=== PATIENT | male | born 1990 | race Caucasian/White ===

== ENCOUNTER 2019-11-24 07:46 | Emergency (ER) | payer MEDICAID, SELFPAY ==
[2019-11-24 07:58] VITALS: BP 130/63; PULSE 61; RESP 16; TEMP 37.1; O2SAT 98
--- NOTE | 2019-11-24 09:21 | W.ED.GENAD ---
Discharge Plan Disposition Patient Disposition: HOME Condition: Stable Discharge Details Chief Complaint: Cellulitis Clinical Impression: Foreign body in left upper extremity Primary Care Provider: None,None ED Provider: Chance Dao Home Meds and New Rx's Prescriptions: New cephalexin [Keflex] 500 mg capsule 500 mg PO QID 10 Days Qty: 40 RF: 0 hydrocodone-acetaminophen [[place]] 7.5-325 mg tablet 1 tab PO Q6H PRNQty: 10 RF: 0 Continued buprenorphine-naloxone [Suboxone] 1 EACH film 2 strip Sublingual DAILY RF: 0 dextroamphetamine-amphetamine [Adderall] 30 MG tablet 30 mg PO BID RF: 0 dexmethylphenidate [Focalin] 10 MG tablet 20 mg PO BID RF: 0 ondansetron 4 MG tablet,disintegrating 4 mg PO Q4H PRN PRN (Reason: Nausea / Vomiting) Qty: 10 RF: 1 dicyclomine 20 MG tablet 20 mg PO Q6H PRN PRN (Reason: Abdominal Pain) Qty: 14 RF: 0 pantoprazole 40 MG tablet,delayed release (DR/EC) 40 mg PO DAILY Qty: 30 RF: 0 methadone [Dolophine] 5 MG tablet 65 mg PO DAILY RF: 0 Discontinued cephalexin [Keflex] 500 MG capsule 500 mg PO QID Qty: 28 RF: 0 Discharge Instructions Additional Instructions: As you know you have a small needle in your left arm. I hope this area will come out on its own. You can take 800 mg of Motrin every 6 hours to help with the pain, take the [place]'s as needed to help with breakthrough pain. Do not forget or miss any of your Keflex doses. Do not miss your appointment at 1:30pm on Wednesday, November 28 with the surgeon. Keep the area clean and dry. The needle hopefully come out on its own. Do not soak it in water at all until you are reassessed. If you notice any worsening of your symptoms, or any new symptoms such as vomiting, diarrhea, fever, chills, shortness of breath, chest pain, numbness, weakness, or fainting , please return immediately to the emergency department for reevaluation. Please follow up with your primary care provider as soon as possible for reassessment and reevaluation. As always, it was a pleasure participating in your medical care today. Referrals: Lisseth Martin DO [OSTEOPATHIC DOCTOR] - Medical Decision Making 29-year-old male with past medical history of IV drug abuse presents today for evaluation of foreign body in his left upper arm. Patient was using a needle broke off last night. He tried to did get it with a razor blade but was unsuccessful. He is come to the ER for further assessment. Aside for pain at the site he has no other complaints. He denies any numbness tingling or weakness. No other modifying factors. Physical exam demonstrates a slightly palpable foreign body about half a centimeter below the skin. Ultrasound confirms placement. Very small incision was performed with an 11 blade scalpel, utilizing ultrasonography I was able to visualize the needle and forceps and hemostats coming to the tip of the needle, however unfortunately the needle edge was just below a fascial barrier, which notably obfuscated my ability to grasp the needle tip itself. The entire procedure was performed under ultrasound guidance. After about 15 minutes of attempts I did contact surgery Dr. Best, and assessed the patient. She also came and assessed and attempted, the initial insertion site was elongated, but unfortunately after multiple additional attempts she too was unable to extract the needle. Repeat ultrasonography demonstrates visualization of single needle but does appear slightly deeper. At this time is felt best that we avoid any additional attempts, and follow-up outpatient for potential scheduling of open surgery, however there is also the hope that the needle will remove itself on its own. Exparel was injected by myself at the end around the initial site to help get some pain relief, I do feel that the patient would benefit from additional pain medications at this time secondary to notable pain of the current needle placement. Repeat neurovascular exam continues to show no numbness tingling or vascular compromise. Patient will be discharged home on Keflex 500 x4 times daily, he will be given a sling for comfort. We have outpatient surgery follow-up scheduled with him with Dr. Best. I have extensively reviewed the treatment plan and discharge instructions with the patient. I have addressed all patient concerns at this time. The patient was made aware of what symptoms to monitor for that would warrant a return to the emergency department. Discussed the plan with the patient, they demonstrate verbal understanding and agreement with our assessment and plan at this time. HPI General Date/Time Provider Initiated Documentation: 11/24/19 08:05. HPI Narrative: 29-year-old male with past medical history of IV drug abuse presents today for evaluation of foreign body in his left upper arm. Patient was using a needle broke off last night. He tried to did get it with a razor blade but was unsuccessful. He is come to the ER for further assessment. Aside for pain at the site he has no other complaints. He denies any numbness tingling or weakness. No other modifying factors. Related Data Home Medications Medication Instructions Recorded Confirmed buprenorphine-naloxone [Suboxone] 2 strip SUBLINGUAL DAILY 11/22/12 05/09/16 dextroamphetamine-amphetamine 30 mg PO BID 07/21/14 05/09/16 [Adderall] dexmethylphenidate [Focalin] 20 mg PO BID 12/28/14 05/09/16 dicyclomine 20 mg PO Q6H PRN PRN #14 tab 12/28/14 05/09/16 ondansetron 4 mg PO Q4H PRN PRN #10 tabef 12/28/14 11/11/15 pantoprazole 40 mg PO DAILY #30 tabcr 12/28/14 05/09/16 methadone [Dolophine] 65 mg PO DAILY 05/09/16 05/09/16 cephalexin [Keflex] 500 mg PO QID 10 Days #40 cap 11/24/19 hydrocodone-acetaminophen [[place]] 1 tab PO Q6H PRN #10 tab 11/24/19 Previous Rx's Medication Instructions Recorded dicyclomine 20 mg PO Q6H PRN PRN #14 tab 12/28/14 ondansetron 4 mg PO Q4H PRN PRN #10 tabef 12/28/14 pantoprazole 40 mg PO DAILY #30 tabcr 12/28/14 cephalexin [Keflex] 500 mg PO QID 10 Days #40 cap 11/24/19 hydrocodone-acetaminophen [[place]] 1 tab PO Q6H PRN #10 tab 11/24/19 Allergies Allergy/AdvReac Type Severity Reaction Status Date / Time No Known Allergies Allergy Unverified 05/09/16 08:24 General Stated Complaint: Cellulitis NANCY: 4 Review of Systems All systems reviewed & are unremarkable except as noted in HPI and below PFSH Social History Smoking/Tobacco Use Status: Current every day Tobacco Type: cigarettes Alcohol Intake: never Drug use: Daily Substance use type: marijuana, heroin and IV drugs Do you feel safe at home: Yes Do you feel safe in your relationship?: Yes Exam Narrative Exam Narrative: 1.Const: Well-nourished, Well-developed, appearing stated age 2.Eyes: PERRL, no conjunctival injection, and symmetrical lids. 3.ENT: Atraumatic external nose and ears. Moist MM. Neck: Symmetric, trachea midline, No thyromegaly. 4.CVS: +S1/S2, No murmurs or gallops. Peripheral pulses 2+ and equal in all extremities. Brisk capillary refill in all extremities. 5.RESP: Unlabored respiratory effort. Clear to auscultation bilaterally. No wheezes rales or rhonchi 6.GI: Soft, Nontender/Nondistended, No hepatosplenomegaly. No guarding or rebound. 7.MSK: Normocephalic/Atraumatic, Extremities w/o deformity or ttp No cyanosis or clubbing, Normal movement of all extremities 8.Skin: Warm, Dry. Patient's left upper extremity at the midshaft humerus anterior component demonstrates small excoriation rose which were iatrogenic/self-inflicted in an attempt to get the needle out. If deep pressure is applied you can gently feel the needle the anterior plane midshaft anterior to the biceps muscle. No bleeding. Distal exam demonstrates no numbness tingling weakness. Capillary refill is brisk. Radial pulses +2 bilaterally. Bedside limited ultrasound does demonstrate a needle roughly a centimeter long, notably thin, no local surrounding veins or arteries that can be appreciated on ultrasound. 9.Neuro: mental health therapist II-XII grossly intact. Sensation grossly intact, no focal neurologic deficits. 10.Psych: (AAO) x3. Appropriate mood and affect Course Vital Signs Vital signs: Vital Signs Temperature 37.1 C 11/24/19 07:58 Pulse 61 11/24/19 07:58 Respiratory Rate 16 11/24/19 07:58 Blood Pressure 130/63 11/24/19 07:58 Pulse Oximetry 98 11/24/19 07:58 Temperature 37.1 C 11/24/19 07:58 Temperature Source Tympanic 11/24/19 07:58 Pulse 61 11/24/19 07:58 Respiratory Rate 16 11/24/19 07:58 Respiratory Effort 11/24/19 08:03 Blood Pressure 130/63 11/24/19 07:58 Blood Pressure Position Sitting 11/24/19 07:58 Pulse Oximetry 98 11/24/19 07:58 Oxygen Delivery Method Room Air 11/24/19 07:58 Oxygen Flow Rate 0 11/24/19 07:58 Pain Level 3 11/24/19 07:58 Procedures Foreign Body Removal Time Out Performed: yes Site: left and other (Upper extremity over the midshaft humerus) Description of foreign body: needle Sedation/Analgesia: none Technique: removal with forceps, incision made to facilitate removal and bedside ultrasound guidance Confirmed by:: ultrasound and palpation Complications: none (However we were unable to remove the foreign body) Neurovascular: normal distal pulse, normal capillary fill, distal light touch sensation intact, distal motor function normal, no signs of compartment syndrome, no change from pre-procedure and other (5 cc of lidocaine with epinephrine were initially injected into the wound site, and after repeat procedures an additional 5 cc of Exparel were injected into the wound area)
--- NOTE | 2019-11-24 09:50 | W.SURGCON ---
Date of service: 11/24/19 Time of Service: 10:16 Assessment and Plan Assessment and plan (1) Foreign body in left upper extremity: Status: Acute Assessment and plan: A\\ Will place patient on Antibiotics and see in the office next week At that time will review options of leaving the needle in place and allowing it to come out on its own or it may end up getting scarred into place vs surgical exploration in the OR. P\\ Follow up next week Keflex Qualifiers: Encounter type: initial encounter Qualified Code(s): S40.852A - Superficial foreign body of left upper arm, initial encounter History of Present Illness History of Present Illness Chief Complaint: foreign body Narrative: Mr. Orellana is a 29 year old male that came to the ER after braking off a piece of a hypodermic needle in his left biceps while injecting IV drugs. Dr. Dao attempted to remove the needle under US but wasn't able to so asked if I would give it a try. Consults Consult date: 11/24/19 Requesting physician: Chance Dao Review of Systems Constitutional Constitutional: Denies fever(s) PFSH Medical History ADHD (attention deficit hyperactivity disorder) (Acute) GERD (gastroesophageal reflux disease) (Chronic) IV drug abuse (Acute) Social History Smoking/Tobacco Use Status: Current every day Tobacco Type: cigarettes Alcohol Intake: never Drug use: Daily Substance use type: marijuana, heroin and IV drugs Do you feel safe at home: Yes Do you feel safe in your relationship?: Yes Exam Const General: cooperative and no acute distress Orientation: alert and oriented x3 Extrem Other: Left Upper extremity- There is a small incision. The skin is still numb from the local anesthetic. The incision was increased superiorly with an 11 blade after cleaning the skin with chlorhexidine. I attempted to locate the needle without success. Dr. Dao then came in with the US and again tried to locate the needle. It looks like the needle has travelled deeper. Again an attempt was made to find the needle and remove it under US guidence but I was unable to find it. Results Last Vital Signs Temp 98.8 F 11/24/19 07:58 Pulse 61 11/24/19 07:58 Resp 16 11/24/19 07:58 BP 130/63 06/26/20 07:58 Pulse Ox 98 11/24/19 07:58
[2019-11-24] MEDS: Bupivacaine LIPOSOME/PF 133 MG/10 ML VIAL IJ (10:05)
[2019-11-24 10:29] VITALS: BP 130/63; PULSE 61; RESP 16; TEMP 37.1; O2SAT 98
== END 2019-11-24 10:29 | disposition home or self-care (01) ==
PROVIDERS: Emergency Provider Student in an Organized Health Care Education/Training Program
DX: S41.142A Puncture wound with foreign body of left upper arm, initial encounter (principal); W46.1XXA Contact with contaminated hypodermic needle, initial encounter; L03.115 Cellulitis of right lower limb; F11.10 Opioid abuse, uncomplicated
CPT/HCPCS: 10120; 99252; 99283; L3650

== ENCOUNTER 2024-02-29 08:16 | Emergency (ER) | payer MEDICAID, SELFPAY ==
[2024-02-29 08:41] VITALS: BP 133/115; PULSE 61; RESP 14; TEMP 36.4; O2SAT 99
[2024-02-29 08:44] VITALS: BP 133/115; PULSE 61; RESP 14; TEMP 36.4; O2SAT 99
--- NOTE | 2024-02-29 08:50 | ED.GENADUL_ITS ---
Discharge Plan Disposition Patient Disposition: Eloped Condition: Stable Discharge Details Clinical Impression: Tongue abnormality Primary Care Provider: Veronica Agrawal ED Provider: Chance Dean Home Meds and New Rx's Prescriptions: No Action buprenorphine-naloxone [Suboxone] 1 EACH film 2 strip Sublingual DAILY Patient Comments: pt states he does not take 05/09/16 Discharge Instructions Additional Instructions: Patient eloped prior to CT scan, stated he did not want this study and walked out. HPI General Date/Time Provider Initiated Documentation: 02/29/24 08:45 . HPI Narrative: 33 year-old male presents to ED today by POV/ambulating with a chief complaint of tongue lesion, states the R side of his tongue has been hurting for a day or two, patient is nodding off mid-conversation, appears inebriated on some substa nce, not alcohol. Quality described as concerned for tongue abscess, no radiation to fever, dysphagia, drooling, neck or facial swelling/redness, purulent drainage into mouth. Severity is described as mild to moderate. Palliating factors include nothing specific attempted. Provoking factors include nothing specific. Events leading up to the incident/Associated Symptoms: Patient has history of biting off part of his tongue during a seizure. Patient not anticoagulated. Related Data Home Medications ?Medication ?Instructions ?Recorded ?Confirmed buprenorphine 8 mg-naloxone 2 mg 2 strip sublingual DAILY 11/22/12 02/29/24 sublingual film (Suboxone) Allergies Allergy/AdvReac Type Severity Reaction Status Date / Time No Known Allergies Allergy Unverified 02/29/24 08:45 General Stated Complaint: DentalOral NANCY: 3 Review of Systems All systems reviewed & are unremarkable except as noted in HPI and below Exam Narrative Exam Narrative: GENERAL APPEARANCE: Well-nourished, non-toxic, atraumatic, no acute distress. SKIN: Warm, pink, dry, intact, without rashes/lesions/ulcerations. HEAD: Normocephalic, atraumatic, normal hair distribution for gender/age. EYES: Normal conjunctiva, no exudates on lids/lashes. ENT: Nares patent, no circumoral cyanosis, no facial swelling, shortened tongue from prior injury, hard nodule on R side of tongue about 0.25cm, no fluctuance or redness, no purulent drainage, uvula midline, no submandibular swelling, managing secretions well, no vocal changes NECK: Supple, trachea midline, painless cervical ROM. LUNGS/CHEST: Non-labored respirations, normal A/P diameter, symmetrical expansion, no chest wall deformity HEART (CV/PV): No peripheral edema, no JVD. ABDOMEN: Soft, non-distended, no guarding. MSK: Normal ROM, no swelling/deformity to bilateral UEs or LEs, moving all extremities without weakness, no cyanosis, spine midline without tenderness, normal curvature. NEURO: Mental Status AAOx4 - alert to person, place, time, events, appears intoxicated on substance No facial droop, no forehead involvement. Motor: No focal weakness - strength 5/5 in bilateral UEs and LEs, proximal and distal, symmetric. Sensory: sensation intact to light touch globally. Gait normal: patient ambulated without ataxia into ED room. PSYCH: dysthymic, cooperative, pleasant, appropriate speech Course Vital Signs Vital signs: Vital Signs Temperature 36.4 C L 02/29/24 08:41 Pulse 61 02/29/24 08:41 Respiratory Rate 14 02/29/24 08:41 Blood Pressure 133/115 H 02/29/24 08:41 Pulse Oximetry 99 02/29/24 08:41 Temperature 36.4 C L 02/29/24 08:44 Temperature Source Temporal Artery Scan 02/29/24 08:44 Pulse 61 02/29/24 08:44 Respiratory Rate 14 02/29/24 08:44 Respiratory Effort Normal 02/29/24 08:44 Blood Pressure 133/115 H 02/29/24 08:44 Pulse Oximetry 99 02/29/24 08:44 Oxygen Delivery Method Room Air 02/29/24 08:44 Oxygen Flow Rate 0 02/29/24 08:44 Pain Level 8 02/29/24 08:44 Medical Decision Making This dictation utilizes hikac-py-[id number] dictation software and may contain unedited grammatical errors. 33 year-old male presents to ED today by POV/ambulating with a chief complaint of tongue lesion, states the R side of his tongue has been hurting for a day or two, patient is nodding off mid-conversation, appears inebriated on some substance, not alcohol. Quality described as concerned for tongue abscess, no radiation to fever, dysphagia, drooling, neck or facial swelling/redness, purulent drainage into mouth. Severity is described as mild to moderate. Palliating factors include nothing specific attempted. Provoking factors include nothing specific. Events leading up to the incident/Associated Symptoms: Patient has history of biting off part of his tongue during a seizure. Patients' medical history: IV drug abuse, GERD. Family and social history: patient doesn't answer these questions. Pertinent exam findings / vital signs include shortened tongue from prior injury, hard nodule on R side of tongue about 0.25cm, no fluctuance or redness, no purulent drainage, uvula midline, no submandibular swelling, managing secretions well, no vocal changes, appears intoxicated. Differential / pathologies of concern include oral cancer, scar tissue, canker sore. Diagnostic studies of: -discussed CT neck w/ contrast, patient refused study and walked out. Interventions of: -none. ED Course/Assessment/Plan: 33-year-old male has a right-sided tongue abnormality, appears to be a hard 0.25 cm nodule, I discussed the need for CT but that we would likely need to refer to dentist or oral surgeon or ENT for definitive diagnosis, patient then refused CT scan and walked out of department. Findings not consistent with oral abscess, airway compromise, deep space infection. Disposition of tongue abnormality. Patient verbalized understanding of the plan and return to ED criteria and engaged in shared decision making. Medical Records Medical records reviewed: Yes I reviewed the patient's medical records. Quality:[facility] Health Related Social Needs: No Data to Display [facility] All Active Problems (Updated 02/29/24 @ 08:56 by VINITA Vasquez) Tongue abnormality (Acute) Medical History GERD (gastroesophageal reflux disease) ADHD (attention deficit hyperactivity disorder) IV drug abuse Social History Smoking/Tobacco Use Status: Current every day Tobacco Type: cigarettes Smoking risk assessment performed?: Yes Alcohol Intake: never Drug use: Daily Substance use type: marijuana, heroin and IV drugs Do you feel safe at home: Yes Do you feel safe in your relationship?: Yes
== END 2024-02-29 09:07 | disposition left against medical advice (07) ==
PROVIDERS: Emergency Provider Physician Assistant; PCP Family Medicine
DX: Q38.3 Other congenital malformations of tongue (principal); Z53.29 Procedure and treatment not carried out because of patient's decision for other reasons
CPT/HCPCS: 99281; 99283

== ENCOUNTER 2024-03-14 18:09 | Inpatient (IN) | payer MEDICAID, SELFPAY ==
[2024-03-14] VITALS (55 sets, daily range): BP systolic 126–264; BP diastolic 85–169; PULSE 52–126; RESP 0–28; TEMP 36.6–37.3; O2SAT 95–100
--- NOTE | 2024-03-14 18:00 | DI.RAD_ITS ---
Exam(s) XR PORTABLE CHEST AP EXAM: XR PORTABLE CHEST AP CLINICAL HISTORY: ams. TECHNIQUE: 2D digital imaging was performed. COMPARISON: No exams were available for comparison FINDINGS: Single AP portable view. Heart size is upper normal. The mediastinum is not widened. Lungs are clear. No infiltrates nor obvious pleural effusions. IMPRESSION: No acute pulmonary findings on this single AP portable view of the chest. DATA REPOSITORY: RADIATION DOSE DELIVERED:
--- NOTE | 2024-03-14 18:00 | RT.EKG_ITS ---
APPROVED REPORT Exam: Resting ECG Reason for Exam: [facility] [place] Patient Location: E HR:100 bpm ECG Measurements Heart Rate 100 AXIS WY 144 P 76 QRSd 97 QRS 44 QT 360 T 39 QTc 463 Conclusion Sinus tachycardia...rate> 99 Probable left atrial enlargement...P >50mS, <-0.10mV V1 Sinus tachycardia normal axis normal intervals no acute ischemic changes
--- NOTE | 2024-03-14 18:00 | DI.CT_ITS ---
Exam(s) CT HEAD WO EXAM: CT HEAD WO CLINICAL HISTORY: ams. TECHNIQUE: Imaging Protocol: Axial computed tomography images with coronal and sagittal reformatted images were created and reviewed COMPARISON: No exams were available for comparison FINDINGS: There are no skull fractures. There is no fluid in the visualized paranasal sinuses. There is no evidence of intracranial hemorrhage, mass effect, or shift of midline structures. There are no extra-axial fluid collections. The ventricles are not enlarged or shifted and there is no blo od within the ventricular system nor within the basal cisterns. IMPRESSION: No acute intracranial findings on this noninfused CT scan of the brain. Report called by myself to ER physician 03/14/2024 7:14 p.m. RADIATION DOSE DELIVERED: 953.06mGy.cm Total DLP DATA REPOSITORY: All CT scans at this facility are submitted to the National Radiology Data Registry (NRDR) Dose Index Registry (DIR) with the [employer] ([employer]). RADIATION OPTIMIZATION: All CT scans at this facility use at least one of these dose optimization te chniques: automated exposure control; mA and/or kV adjustment per patient size (includes targeted exa ms where dose is matched to clinical indication); or iterative reconstruction.
[2024-03-14 18:20] LABS: Abs Immature Grans 0.02 10^3/uL (0.0-0.06); Absolute Basophil Count 0.02 10^3/uL (0.0-0.2); Absolute Eosinophil Count 0.02 10^3/uL (0.0-0.7); Absolute Neutrophil Count 5.43 10^3/uL (1.2-6.7); BE (Venous) 5 mmol/L (-2-3); Basophils % 0.2 %; Eosinophils % 0.2 %; HCO3 (Venous) 29 mmol/L (23-28); HCT 47.4 % (40.0-50.0); HGB 15.4 g/dL (13.5-17.5); Immature Grans % 0.2 %; Lymphocytes % 27.4 %; MCH 28.3 pg (27.0-33.0); MCHC 32.5 % (32.0-36.0); MCV 87 fL (80-95); MPV 10.2 fL (8.0-11.0); Monocytes % 7.2 %; Neutrophils % 64.8 %; O2 Sat (Venous) 52 %; Platelet Count 207 10^3/uL (130-400); RBC 5.45 10^6/uL (4.36-5.78); RDW 12.8 % (11.8-14.1); RDW-SD 39.9 fL; TCO2 (Venous) 25 mmol/L (24-29); WBC 8.39 10^3/uL (4.4-10.8); pCO2 (Venous) 41 mmHg (41-51); pH (Venous) 7.46 (7.31-7.41); pO2 (Venous) 27 mmHg
[2024-03-14 18:34] LABS: Prothrombin Time 10.1 sec (9.1-11.1)
[2024-03-14] MEDS: Atropine 1 MG/10 ML SYRINGE ×2 (18:35→20:46)
--- NOTE | 2024-03-14 18:44 | ED.GENADUL_ITS ---
Discharge Plan Disposition Patient Disposition: Admit to [facility] Condition: Serious Discharge Details Chief Complaint: AMS/LOC Clinical Impression: Altered mental status Primary Care Provider: Veronica Agrawal ED Provider: Obie Go Home Meds and New Rx's Prescriptions: No Action buprenorphine-naloxone [Suboxone] 1 EACH film 2 strip Sublingual DAILY Patient Comments: pt states he does not take 05/09/16 HPI General Date/Time Provider Initiated Documentation: 03/14/24 18:09 . HPI Narrative: 33-year-old male brought in by EMS after mother found him on the couch with decreased responsiveness per mother had been on the couch since midnight. Patient minimally interactive with history and physical. Related Data Home Medications ?Medication ?Instructions ?Recorded ?Confirmed buprenorphine 8 mg-naloxone 2 mg 2 strip sublingual DAILY 11/22/12 02/29/24 sublingual film (Suboxone) Allergies Allergy/AdvReac Type Severity Reaction Status Date / Time No Known Allergies Allergy Unverified 03/14/24 18:16 General Stated Complaint: AMS/LOC NANCY: 2 Exam Narrative Exam Narrative: Decreased responsiveness intermittently responding to verbal stimuli Mydriasis Copious oral secretions Piloerection of extremities Patient noted to be bradycardic to the 40s and 50s Evidence the patient has urinated and defecated on himself Patient keeping eyes closed, intermittently responding to verbal stimuli intermittently squeezing hands to command, inappropriate words with verbal response total GCS approximately 10 on arrival Patient moving all extremities spontaneously No evidence of cranial thoracic or abdominal trauma Course Vital Signs Vital signs: Vital Signs Respiratory Rate 22 03/14/24 18:07 Pulse Oximetry 99 03/14/24 18:07 Temperature 36.6 C 03/14/24 18:17 Temperature Source Rectal 03/14/24 18:17 Pulse 59 L 03/14/24 18:17 Pulse 126 H 03/14/24 18:30 Respiratory Rate 26 H 03/14/24 18:30 Respiratory Effort Drooling 03/14/24 18:21 Respiratory Depth Deep 03/14/24 18:21 Respiratory Pattern Normal 03/14/24 18:21 Blood Pressure 158/85 H 03/14/24 18:17 Blood Pressure Mean 113 03/14/24 18:16 Blood Pressure Position Sitting 03/14/24 18:17 Pulse Oximetry 98 03/14/24 18:20 Respiratory End-tidal CO2 33 03/14/24 18:30 Oxygen Delivery Method Room Air 03/14/24 18:17 Oxygen Flow Rate 0 03/14/24 18:17 Pain Level 0 03/14/24 18:17 Comment post atropine 03/14/24 18:30 Lab/Test Results Lab/Test Results: Laboratory Tests Range/Units 03/14/24 18:11 WBC (4.4-10.8) 10^3/uL 8.39 RBC (4.36-5.78) 10^6/uL 5.45 Hgb (13.5-17.5) g/dL 15.4 Hct (40.0-50.0) % 47.4 MCV (80-95) fL 87 MCH (27.0-33.0) pg 28.3 MCHC (32.0-36.0) % 32.5 RDW (11.8-14.1) % 12.8 Plt Count (130-400) 10^3/uL 207 MPV (8.0-11.0) fL 10.2 Immature Gran % % 0.2 Neutrophils % % 64.8 Lymphocytes % % 27.4 Monocytes % % 7.2 Eosinophils % % 0.2 Basophils % % 0.2 Nucleated RBC % (0.0-0.3) % 0.0 Absolute Neutrophils (1.2-6.7) 10^3/uL 5.43 Absolute Lymphocytes (1.2-3.4) 10^3/uL 2.30 Absolute Monocytes (0.1-0.8) 10^3/uL 0.60 Absolute Eosinophils (0.0-0.7) 10^3/uL 0.02 Absolute Basophils (0.0-0.2) 10^3/uL 0.02 PT (9.1-11.1) sec 10.1 INR (0.9-1.1) 1.0 APTT (23.6-32.8) sec 24.0 VBG pH (7.31-7.41) 7.46 H VBG pCO2 (41-51) mmHg 41 VBG pO2 mmHg 27 VBG HCO3 (23-28) mmol/L 29 H VBG Total CO2 (24-29) mmol/L 25 VBG O2 Saturation % 52 VBG Base Excess (-2-3) mmol/L 5 H Procedures Intubation Time out performed: Yes sedative: Etomidate Mg Given: 20 paralytic: Rocuronium Mg Given: 100 Laryngoscope: Ankur ET Tube Size: 7.5 ET Tube Uncuffed: No Tube Secured Depth (cm): 25 Tube Secured Location: teeth Tube Placement Confirmation: visualized tube passing through cords, equal breath sounds bilaterally, no breath sounds over epigastrum and confirmation by capnometry Patient Tolerated Procedure: well Intubation Complications: none Medical Decision Making 33-year-old male presents with altered mental status and somnolence drooling yawning piloerection urinary and stool incontinence, mydriasis, as well as bradycardia to the 40s and 50s; fingerstick 111, no external signs of trauma. Initial GCS approximately 10. Concern for organophosphate toxicity. Patient was given empiric 1 mg IV atropine with marked improvement of mental status and heart rate. Pupils of return to a normal size. 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 Please control was contacted and agrees with intervention recommended continued observation. Secondary in the differential would be opio id withdrawal in the setting of Suboxone use consider the potential the patient used an opiate with a sedative hypnotic such as xylazine triggering the constellation of symptomatology however I would not expect patient's mental status to improve with atropine administration. Given his occupation and presentation high clinical suspicion for organophosphate toxicity. Obtaining labs toxicologic labs VBG chest x-ray CT head, continued supportive care airway equipment is at bedside. Patient will need close observation in the ICU 20: 01 patient currently resting comfortably telling secretions which have dried up considerably since atropine administration. Hemodynamically stable. No respiratory distress. Labs imaging largely unremarkable. Discussed case further with Dr. Nielsen of poison control who thinks that organophosphate toxicity is less likely given timeframe/history as well as initial examination. Holding 2?JEREMIAH at this time. Consider opioid withdrawal with concomitant sedative use lower suspicion for seizure traumatic process or stroke. Will admit to ICU for close observation of mental status and hemodynamics. 21: 14 patient showing worsening of altered mental status with gagging coughing and likely aspirating intermittent choking and sonorous breathing return of dilated pupils and salivation. Another 1 mg dose of atropine was administered with minimal effect. Patient was intubated for airway protection given altered mental status gagging choking not tolerating secretions and aspirating. Patient will be admitted to the ICU Quality:SDOH Health Related Social Needs: No Data to Display Critical Care Time Critical Care Time Attestation: Critical care time spent the bedside assessing patient interpreting labs opening imaging administering medication, intubating patient for airway protection, and acute altered mental status with signs of aspiration requiring ICU level care [facility] All Active Problems (Updated 03/14/24 @ 21:16 by Obie Go MD) Altered mental status (Acute) Overdose (Acute) Opioid use disorder, severe, on maintenance therapy, dependence (Chronic) Tongue abnormality (Acute) Medical History GERD (gastroesophageal reflux disease) ADHD (attention deficit hyperactivity disorder) IV drug abuse Social History Smoking/Tobacco Use Status: Current every day Tobacco Type: cigarettes Smoking risk assessment performed?: Yes Alcohol Intake: never Drug use: Daily Substance use type: marijuana, heroin and IV drugs Details: on suboxone Housing: house Do you feel safe at home: Yes Do you feel safe in your relationship?: Yes Additional Social history: mother called EMS
[2024-03-14 18:48] LABS: Salicylate 2.9 mg/dL (<2.8)
[2024-03-14 18:49] LABS: Acetaminophen < 2 ug/mL (10-30)
[2024-03-14 18:52] LABS: ALT 52 U/L (16-63); AST 37 U/L (15-37); Albumin 3.8 g/dL (3.4-5.0); Alkaline Phosphatase 120 U/L (46-116); BUN 6 mg/dL (7-18); Bilirubin, Total 0.62 mg/dL (0.2-1.0); CREATININE 1.1 mg/dL (0.70-1.30); Calcium 9.4 mg/dL (8.5-10.1); Chloride 105 mmol/L (98-107); Creatine Kinase 364 U/L (39-308); Estimated GFR 89.78 (mL/min/1.73m2); Glucose 129 mg/dL (74-106); Lipase 23 U/L (16-77); Magnesium 2.2 mg/dL (1.8-2.4); NT-proBNP 906 pg/mL (<300); Potassium 4.2 mmol/L (3.5-5.1); Sodium 145 mmol/L (136-145); TSH (W/Ref FT4) 0.36 uIU/mL (0.36-3.74); Total Protein 8.1 g/dL (6.4-8.2); Troponin I 24 ng/L (<or=76)
[2024-03-14 19:00] LABS: ETHANOL BLOOD < 3.0 mg/dL (<10)
--- NOTE | 2024-03-14 19:24 | NUR.NOTE ---
There was a delay in obtaining EKG due to patient having at CT Scan done prior to EKG being done.
[2024-03-14 19:38] LABS: Ammonia 15 umol/L (11-32)
[2024-03-14 19:46] LABS: Troponin I 38 ng/L (<or=76)
--- NOTE | 2024-03-14 20:29 | HPE_ITS ---
Date of service: 03/14/24 Time of Service: 20:30 Assessment and Plan Assessment and plan (1) Overdose: Start date: 03/14/24 Status: Acute Assessment and plan: This is a 33-year-old gentleman with a history of opioid use disorder but also appears to have polysubstance abuse for self treatment having chronic ADHD. 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 He did have acute change in mental status I was not guarding his airway requiring intubation and will remain intubated with ventilation overnight. He is responding to propofol and does have variable blood pressures and is not bradycardic as with initial presentation requiring atropine. It is most likely patient has polysubstance overdose but lab and imaging are reassuring with no major sequela other than respiratory suppression and sedation. It is likely he has a combination of fentanyl and xylazine. Urine drug screen will be expanded but these are all send outs and will not be available immediately. Patient is a full code and will continue supportive care. Once he is awake and then medically cleared, the patient should return to drug counseling. Qualifiers: Encounter type: initial encounter Injury intent: undetermined intent Q ualified Code(s): T50.904A - Poisoning by unspecified drugs, medicaments and biological substances, undetermined, initial encounter (2) Opioid use disorder, severe, on maintenance therapy, dependence: Status: Chronic Assessment and plan: Patient is prescribed Suboxone chronically but did have cocaine in his urine indicating some drug use. He does have a previous history of drug use. Continue monitoring while sedated and supportive care for his overdose. (3) ADHD (attention deficit hyperactivity disorder): Assessment and plan: Medical therapy but is may need to be reevaluated patient is not coping well with social situation. He appears to be working but he is living at home with his mother. At least he appears to have some support systems. 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 He is on Suboxone and does have a history of IV drug abuse. He was found asleep on the couch with increased somnolence and drooling while yawning with piloerection and some urinary and stool incontinence as well as mydriasis with some concerns of organophosphate toxicity with his exposure. In the ED he did have Allergy consultation and it was thought to be less of a chronic phosphate toxicity and more likely a mixture is polysubstance drug abuse. His urine drug screen was positive for cocaine and THC but negative for opiates screen for methadone, fentanyl, Suboxone or xylazine which was sent out as a special urine drug screens. He did have bradycardia with overproduction of secretions which both responded to atropine one-time dose in the ED. He was doing well in the ED with being more awake and interacting awaiting imaging but then became more somnolent once again and required endotracheal intubation with patient not guarding his airway adequately. The only known prescribed medication for patient on record is Suboxone though he does have ADHD and may have some risk of self treatment. As that he did use IV drugs in the past. The ED physician did have a long discussion with Dr. Nielsen and poison control who was leaning less toward the differential diagnosis of organophosphate toxicity because of the timing and presentation the patient did have considerable response to atropine. Patient will have supportive care while mechanically ventilated and intubated with sedation using propofol mostly. He is intermittently hypertensive and not bradycardic. At the time I saw the patient he was sedated and intubated. No further history was available. Lab and imaging was otherwise reassuring for any other metabolic issues and the patient is comfortable lying bed with his head at a 45 degree angle and an OG tube with his endotracheal intubation. He is a full code. Review of Systems Narrative: Review of systems unobtainable with patient sedated and intubated. [facility] All Active Problems Altered mental status (Acute) Overdose (Acute) Opioid use disorder, severe, on maintenance therapy, dependence (Chronic) Tongue abnormality (Acute) Medical History GERD (gastroesophageal reflux disease) ADHD (attention deficit hyperactivity disorder) IV drug abuse Social History Smoking/Tobacco Use Status: Current every day Tobacco Type: cigarettes Smoking risk assessment performed?: Yes Alcohol Intake: never Drug use: Daily Substance use type: marijuana, heroin and IV drugs Details: on suboxone Housing: house Do you feel safe at home: Yes Do you feel safe in your relationship?: Yes Additional Social history: mother called EMS Meds Allergies and Home Medications Allergies Allergy/AdvReac Type Severity Reaction Status Date / Time No Known Allergies Allergy Unverified 03/14/24 18:16 Home Medications ?Medication ?Instructions ?Recorded ?Confirmed ?Type buprenorphine 8 mg-naloxone 2 mg 2 strip sublingual DAILY 11/22/12 02/29/24 History sublingual film (Suboxone) Exam Narrative Exam Narrative: General: Patient is mesomorphic, tall and thin but in bed sedated with propofol with endotracheal intubation and mechanically ventilated. He does have restraints over his arms and is not typing. He is adequately sedated after being transferred to the ICU with some transient hyperactivity. HEENT: Normocephalic, eyes now with pupils equal and reactive to light symmetrically, extraocular movement intact and sclera anicteric. Oropharynx with moist mucosa. Endotracheal tube and OG tube in place. Fair dentition. Neck: Supple without JVD. Back: Not examined. Lungs: Clear to auscultation WITH no focalizing rales or rhonchi. Patient is being mechanically ventilated without struggling. Heart: Regular rate and rhythm with no murmurs gallops appreciated. Abdomen: Scaphoid contour, soft nontender to palpation no palpable hepatosplenomegaly. Genitalia/rectal: Exam deferred. Patient has a Mejia catheter in place. Skin: Normal color, warm and dry. Multiple tattoos. Neuro: Cranial nerves II through XII appear to be grossly intact as testing is possible with patient intubated and sedated. No focal motor deficits moving all extremities well. No tremor. Psych: Patient is sedated and intubated. Exam limited. Results Imaging Imaging Studies: EXAM: CT HEAD WO CLINICAL HISTORY: ams. TECHNIQUE: Imaging Protocol: Axial computed tomography images with coronal and sagittal reformatted images were created and reviewed COMPARISON: No exams were available for comparison FINDINGS: There are no skull fractures. There is no fluid in the visualized paranasal sinuses. There is no evidence of intracranial hemorrhage, mass effect, or shift of midline structures. There are no extra-axial fluid collections. The ventricles are not enlarged or shifted and there is no blood within the ventricular system nor within the basal cisterns. IMPRESSION: No acute intracranial findings on this noninfused CT scan of the brain. EXAM: XR PORTABLE CHEST AP CLINICAL HISTORY: ams. TECHNIQUE: 2D digital imaging was performed. COMPARISON: No exams were available for comparison FINDINGS: Single AP portable view. Heart size is upper normal. The mediastinum is not widened. Lungs are clear. No infiltrates nor obvious pleural effusions. IMPRESSION: No acute pulmonary findings on this single AP portable view of the chest. Labs 03/14/24 18:11 03/14/24 18:11 Labs: Laboratory Results - last 24 hr 03/14/24 03/14/24 18:11 19:10 WBC 8.39 RBC 5.45 Hgb 15.4 Hct 47.4 MCV 87 MCH 28.3 MCHC 32.5 RDW 12.8 Plt Count 207 MPV 10.2 Immature Gran % 0.2 Neutrophils % 64.8 Lymphocytes % 27.4 Monocytes % 7.2 Eosinophils % 0.2 Basophils % 0.2 Nucleated RBC % 0.0 Absolute Neutrophils 5.43 Absolute Lymphocytes 2.30 Absolute Monocytes 0.60 Absolute Eosinophils 0.02 Absolute Basophils 0.02 PT 10.1 INR 1.0 APTT 24.0 VBG pH 7.46 H VBG pCO2 41 VBG pO2 27 VBG HCO3 29 H VBG Total CO2 25 VBG O2 Saturation 52 VBG Base Excess 5 H Sodium 145 Potassium 4.2 Chloride 105 Carbon Dioxide 28.0 Anion Gap 12.0 H BUN 6 L Creatinine 1.1 Est GFR (CKD-EPI 2020) 89.78 Glucose 129 H Calcium 9.4 Magnesium 2.2 Total Bilirubin 0.62 AST 37 ALT 52 Alkaline Phosphatase 120 H Ammonia 15 Creatine Kinase 364 H Troponin I 24 38 NT-Pro-B Natriuret Pep 906 H Total Protein 8.1 Albumin 3.8 Lipase 23 TSH 0.36 Salicylates 2.9 Acetaminophen < 2 Ethyl Alcohol < 3.0 ABO/Rh A Positive Antibody Screen NEGATIVE Last Vital Signs Temp 36.6 C 03/14/24 18:17 Pulse 59 L 03/14/24 18:17 Resp 26 H 03/14/24 18:30 BP 158/85 H 03/14/24 18:17 Pulse Ox 98 03/14/24 18:20 Time Spent Time spent with Patient: >75 minutes Time was spent: preparing to see the patient(eg.review tests), obtaining and/or reviewing separately otained hiistory, ordering medications,tests, procedures, referring, communicating with other health home day care provider, indepentently interpreting results and care coordination
[2024-03-14 20:58] LABS: Bilirubin Negative (Negative); Blood Negative (Negative); Clarity Clear (Clear); Glucose Negative (Negative); Ketones 15 mg/dL (Negative); Leukocyte Esterase Negative (Negative); Nitrite Negative (Negative); Urobilinogen >=8.0 mg/dL (Up to 0.2); pH 8.5 (5-8)
--- NOTE | 2024-03-14 21:00 | DI.RAD_ITS ---
Exam(s) XR PORTABLE CHEST AP EXAM: XR PORTABLE CHEST AP CLINICAL HISTORY: intubation tube placement TECHNIQUE: 2D digital imaging was performed of the chest. One image was obtained. An AP view was ob tained. COMPARISON: CR XR PORTABLE CHEST AP from 03/14/2024 FINDINGS: MEDIASTINUM: Normal. HEART: Normal. PULMONARY VASCULATURE: Normal. LUNGS: Clear. PLEURAL SPACE: No pleural effusion or pneumothorax. BONE:Within normal limits for the patient's age. OTHER FINDINGS:There has been interval placement of an endotracheal tube. The tip of the tube is 4 c m above the hope. IMPRESSION: 1. No acute pulmonary findings. 2. Interval placement of an endotracheal tube. The tip of the ET tube is 4 cm above the hope. DATA REPOSITORY: RADIATION DOSE DELIVERED:
[2024-03-14 21:04] LABS: Bacteria Negative HPF (Negative); C & S Indicated? No; Crystals Negative HPF (Negative); Epithelial Cells Negative HPF (Negative); Mucus Negative (Negative); RBC 0-2 HPF (0-2); WBC 0-2 HPF (0-5)
[2024-03-14] MEDS: Etomidate 20 MG/10 ML VIAL (21:04)
[2024-03-14] MEDS: PROPOFOL 500 MG/50 ML BTL 10.584 MG IV (21:08)
--- NOTE | 2024-03-14 21:15 | DI.RAD_ITS ---
Exam(s) XR PORTABLE CHEST AP EXAM: XR PORTABLE CHEST AP CLINICAL HISTORY: post intubation and OG tube TECHNIQUE: 2D digital imaging was performed of the chest. One image was obtained. An AP view was ob tained. COMPARISON: CR,XR XR PORTABLE CHEST AP from 03/14/2024 FINDINGS: There has been interval placement of an enteric tube. The tip of the catheter is seen in the stomac h. The side hole is also noted in the stomach. MEDIASTINUM: Normal. HEART: Normal. PULMONARY VASCULATURE: Normal. LUNGS: Clear. PLEURAL SPACE: No pleural effusion or pneumothorax. BONE:Within normal limits for the patient's age. OTHER FINDINGS:The endotracheal tube tip is 4 cm above the hope in good position. IMPRESSION: 1. No acute pulmonary findings. 2. The ET tube is in good position 4 cm above the hope. 3. There has been interval placement of an enteric tube. The tip is in good position in the stomach. DATA REPOSITORY: RADIATION DOSE DELIVERED:
--- NOTE | 2024-03-14 21:33 | NUR.NOTE ---
Nursing Note: 2053 ? Pt showing worsening AMS, gagging, coughing, dilated pupils, intermittent choking, likely aspiration, and salivation. Decision made to intubate patient for airway protection. 2100 ? secondary IV access secured, 18 G L upper arm 2101 ? time out performed, Dr. Davey, Manoj Lucas, Monalisa Zimmerman from [facility], Aminah Pineda 2103 ? 20 etomidate, 100 rocuronium 2104 ? 28 at the lip, 25 at teeth, tube size 7.5 2107 ? propofol started @ 2111 ? patient placed in soft restraints settings: Vent 400, rate 14, 100%, 5 peep 2114 ? og tube placed ? [place] sump 16 maltese, 65cm at teeth 2119 ? imaging obtained to confirm placement 2124 ? prop increased to 25
[2024-03-14 21:58] LABS: BE (Venous) 1 mmol/L (-2-3); HCO3 (Venous) 27 mmol/L (23-28); pCO2 (Venous) 47 mmHg (41-51); pH (Venous) 7.36 (7.31-7.41); pO2 (Venous) 257 mmHg
[2024-03-14 22:00] LABS: O2 Sat (Venous) > 99 %
[2024-03-14 22:28] LABS: *AMPHETAMINES SCREEN URINE Negative (Negative); *BARBITURATES SCREEN URINE Negative (Negative); *BENZODIAZEPINES SCREEN URINE Negative (Negative); Cannabinoids THC Positive (Negative); Cocaine Screen,Urine Positive (Negative); METHADONE URINE SCREEN Negative (Negative); OPIATES URINE SCREEN Negative (Negative)
--- NOTE | 2024-03-14 22:28 | DI.VRAD_ITS ---
PROCEDURE INFORMATION: Exam: XR Chest Exam date and time: 03/14/2024 9:26 PM Age: 33 years old Clinical indication: Device placement; Other: Itubation and og TECHNIQUE: Imaging protocol: Radiologic exam of the chest. Views: 1 view. COMPARISON: CR XR PORTABLE CHEST AP 03/14/2024 6:19 PM FINDINGS: Lungs: Unremarkable. No consolidation. Pleural spaces: Unremarkable. No pleural effusion. No pneumothorax. Heart/Mediastinum: Endotracheal tube tip 3.7 cm above the hope. No cardiomegaly. Bones/joints: Unremarkable. IMPRESSION: No acute findings. Dictated and Authenticated by: Renny Blair MD. Ordering:DOREEN Ragland MD
--- NOTE | 2024-03-14 22:28 | DI.VRAD_ITS ---
PROCEDURE INFORMATION: Exam: XR Chest Exam date and time: 03/14/2024 9:35 PM Age: 33 years old Clinical indication: Device placement; Other: Reposition og TECHNIQUE: Imaging protocol: Radiologic exam of the chest. Views: 1 view. COMPARISON: CR XR PORTABLE CHEST AP 03/14/2024 9:26 PM FINDINGS: Tubes, catheters and devices: Two NG tube tip overlies stomach. Endotracheal tube tip 4 cm above the hope. Lungs: Unremarkable. No consolidation. Pleural spaces: Unremarkable. No pleural effusion. No pneumothorax. Heart/Mediastinum: Unremarkable. No cardiomegaly. Bones/joints: Unremarkable. IMPRESSION: No acute finding. Dictated and Authenticated by: Renny Blair MD. Ordering:DOREEN Ragland MD
[2024-03-14 22:33] LABS: Tricyclic Antidepressants Negative (Negative)
[2024-03-14 22:42] LABS: COVID-19 PCR Negative (Negative); Influenza A PCR Negative (Negative); Influenza B PCR Negative (Negative); RSV PCR Negative (Negative)
[2024-03-14 22:46] LABS: Source Nasopharynx
[2024-03-14] MEDS: Normal Saline 1,000 ML 125 ML IV (23:41)
[2024-03-15] VITALS (101 sets, daily range): BP systolic 139–191; BP diastolic 82–113; PULSE 55–106; RESP 11–34; TEMP 36.6–38; O2SAT 96–100
--- NOTE | 2024-03-15 | DI.RAD_ITS ---
Exam(s) XR PORTABLE CHEST AP EXAM: XR PORTABLE CHEST AP CLINICAL HISTORY: fever after extubation, vomiting. TECHNIQUE: 2D digital imaging was performed. COMPARISON: CR,XR XR PORTABLE CHEST AP from 03/14/2024 FINDINGS: Single AP portable view. The patient has been extubated and the NG tube is also been removed. Heart size is upper normal. The mediastinum is not widened. Lungs are clear. No infiltrates nor obvious pleural effusions. No pneumothorax. No pneumomediastin um. No fractures evident. IMPRESSION: No acute pulmonary findings on this single AP portable view of the chest. ETT and NG tubes have been removed. DATA REPOSITORY: RADIATION DOSE DELIVERED:
[2024-03-15] MEDS: PROPOFOL 500 MG/50 ML BTL 31.752 MG IV (00:02)
[2024-03-15] MEDS: PROPOFOL 1,000 MG/100 ML BTL 42.2 MG IV ×3 (01:50→05:20)
[2024-03-15 07:08] LABS: HCT 43.2 % (40.0-50.0); HGB 14.2 g/dL (13.5-17.5); MCH 28.4 pg (27.0-33.0); MCHC 32.9 % (32.0-36.0); MCV 86 fL (80-95); Platelet Count 236 10^3/uL (130-400); RDW 13.1 % (11.8-14.1); RDW-SD 40.7 fL; WBC 12.19 10^3/uL (4.4-10.8)
[2024-03-15 07:22] LABS: ALT 42 U/L (16-63); AST 30 U/L (15-37); Albumin 3.5 g/dL (3.4-5.0); Alkaline Phosphatase 107 U/L (46-116); BUN 8 mg/dL (7-18); Bilirubin, Total 0.68 mg/dL (0.2-1.0); CREATININE 0.8 mg/dL (0.70-1.30); Calcium 8.7 mg/dL (8.5-10.1); Chloride 106 mmol/L (98-107); Estimated GFR 118.36 (mL/min/1.73m2); Glucose 111 mg/dL (74-106); Potassium 3.2 mmol/L (3.5-5.1); Sodium 144 mmol/L (136-145); Total Protein 7.4 g/dL (6.4-8.2)
[2024-03-15 07:32] LABS: TSH 0.21 uIU/mL (0.36-3.74)
[2024-03-15] MEDS: Normal Saline 1,000 ML 125 ML IV ×2 (07:52→16:57)
[2024-03-15 08:07] LABS: Lab Add On Test DONE
--- NOTE | 2024-03-15 08:30 | RT.EKG_ITS ---
APPROVED REPORT Exam: Resting ECG Reason for Exam: elevated troponins, cocaine Patient Location: I HR:70 bpm ECG Measurements Heart Rate 70 AXIS NC 135 P 77 QRSd 109 QRS -21 QT 435 T 65 QTc 470 Conclusion Sinus rhythm...normal P axis, V-rate 50- 99 Probable left atrial enlargement...P >50mS, <-0.10mV V1 Borderline left axis deviation...QRS axis (-15,-29) ST elev, probable normal early repol pattern...ST elevation, age<55 Borderline prolonged QT interval...QTc >468mS Baseline wander in lead(s) II,III,aVF,V1,V2
[2024-03-15 08:34] LABS: Troponin I 85 ng/L (<or=76)
--- NOTE | 2024-03-15 08:51 | INITIAL_ITS ---
Date of service: 03/15/24 Time of Service: 08:51 Care Management Initial Assmt Initial Assessment Reason for Hospitalization: overdose with sedation Functional Status/Living Situation Patient Presentation: Dangelo was brought to the ED last evening by EMS after his mom found him asleep on the couch with increased somnolence and drooling while yawning with piloerection and some urinary and stool incontinence as well as mydriasis . 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 Consult with poison control did not think this was likely. Urine drug screen was positive for cocaine and THC, but negative for opiates. Urine drug screen is to be expanded, but test is a send out. Dangelo was really struggling when CM went to meet with him today. He was breathing very fast, had just bit his tongue and was bleeding in the mouth. He was also noted to have very heavy secretions from his mouth that he was struggling to clear. RT and RN were both present in the room. RT,RN, and CM did not feel that it was appropriate, nor would it yield results, for CM to interview Dangelo at this time. CM will continue to assess for a time to speak with Dangelo. 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) Instrumental Activities of Daily Living (ADLs): Independent Advance Directives Advance Directives: Do you have an Advance Directive: N 11/24/19 09:55 AD On File at [facility]: N 11/24/19 09:55 Date Asked 03/14/24 03/14/24 18:11 AD Date Reviewed COLST On File at [facility] No 03/14/24 21:26 COLST Date Scanned Code Status Resuscitation Status Full Code Insurance Coverage/Financial Issues Insurance: medicaid Financial Issues: unable to assess Care Team Visit Care Team Role Provider Type Veronica Agrawal Primary Care Provider NON-[facility] STAFF PHYSICIAN Obie Go MD Emergency Provider [facility] STAFF PHYSICIAN Adi Fisher Admit Provider NON-[facility] STAFF PHYSICIAN Attending Provider Discharge Potential Discharge Needs: PCP F/U Appt (drug counseling/inpatient rehab) Anticipated Barriers to Discharge: None Identified Patient/Family Education Needs: Review discharge instructions, discuss Ask Me Three Plan: Dangelo's discharge disposition is unclear at this time, as he is unable to participate in the plan. Dangelo will need to establish with a new PCP. His PCP is listed as the provider from [facility]. T-doc was Manoj Caraballo, and an appointment will be made with him prior to Dangelo's discharge. Anticipate that Dangelo will want some kind of substance abuse support, wether as inpatient or outpatient. CM will continue to follow closely and adjust the plan as needed. PFSH All Active Problems Altered mental status (Acute) Overdose (Acute) Opioid use disorder, severe, on maintenance therapy, dependence (Chronic) Tongue abnormality (Acute) Medical History GERD (gastroesophageal reflux disease) ADHD (attention deficit hyperactivity disorder) IV drug abuse Social History Smoking/Tobacco Use Status: Current every day Tobacco Type: cigarettes Smoking risk assessment performed?: Yes Alcohol Intake: never Drug use: Daily Substance use type: marijuana, heroin and IV drugs Details: on suboxone Housing: house Do you feel safe at home: Yes Do you feel safe in your relationship?: Yes Additional Social history: mother called EMS Readmission Within the Past 30 Days Yes or No: No SDOH(Care Management) Screening Will the Patient Participate in the Screening?: Unable to obtain
[2024-03-15] MEDS: Enoxaparin 40 MG/0.4 ML SYR SC (08:59)
[2024-03-15] MEDS: POTASSIUM CHLORIDE 10 MEQ/100 ML BAG 100 MEQ IV_INF ×3 (08:59→11:33)
[2024-03-15] MEDS: Normal Saline Flush 10 ML SYR IVP ×6 (09:38→19:43)
[2024-03-15] MEDS: Albuterol 2.5 MG/3 ML INH SOLN VIAL UPD (10:01)
[2024-03-15] MEDS: Dexamethasone 10 MG/ML VIAL IVP (10:04)
[2024-03-15 11:09] LABS: BE (Venous) 3 mmol/L (-2-3); HCO3 (Venous) 25 mmol/L (23-28); O2 Sat (Venous) 99 %; TCO2 (Venous) 21 mmol/L (24-29); pCO2 (Venous) 28 mmHg (41-51); pH (Venous) 7.56 (7.31-7.41); pO2 (Venous) 85 mmHg
--- NOTE | 2024-03-15 11:12 | PHA.REVIEW2 ---
Pharmacy Admission Review Admission Clinical Review Admission Pharmacy Review: Altered mental status (Acute) Overdose (Acute) No Known Allergies Allergy (Unverified 03/14/24 18:16) Resuscitation Status Full Code Height 6 ft Weight 88.2 kg Pharmacy Admission Review Renal Dosing Renal Dosing: BUN 8 mg/dL (7-18) 03/15/24 05:50 Creatinine 0.8 mg/dL (0.70-1.30) 03/15/24 05:50 Medications needing adjustments: Reviewed (CrCl 160 mL/min) List of meds needing interventions: Current medications are okay Anticoagulation Anticoagulation: Hgb 14.2 g/dL (13.5-17.5) 03/15/24 05:50 Hct 43.2 % (40.0-50.0) 03/15/24 05:50 Plt Count 236 10^3/uL (130-400) 03/15/24 05:50 INR 1.0 (0.9-1.1) 03/14/24 18:11 Creatinine 0.8 mg/dL (0.70-1.30) 03/15/24 05:50 DVT Prophylaxis: Reviewed Medications: Enoxaparin (40mg daily) Relevant Labs Relevant Labs: Sodium 144 mmol/L (136-145) 03/15/24 05:50 Potassium 3.2 mmol/L (3.5-5.1) L D 03/15/24 05:50 Chloride 106 mmol/L (98-107) 03/15/24 05:50 Magnesium 2.2 mg/dL (1.8-2.4) 03/14/24 18:11 Electrolytes, C-Reactive P, ESR: Reviewed (K 3.2 - repleting with IV infusion, WBC increased from 8.39 to 12.19) Cardiac Review Cardiac Review: Troponin I 85 ng/L (<or=76) H* 03/15/24 05:50 NT-Pro-B Natriuret Pep 906 pg/mL (<300) H 03/14/24 18:11 Blood Pressure 175/94 0908 Blood Pressure 175/94 0758 Blood Pressure 158/113 0701 Blood Pressure 160/98 0601 Blood Pressure 159/103 0510 Blood Pressure 159/103 0501 Blood Pressure 158/101 0401 Blood Pressure 162/101 0310 BP, HR, EF%: Reviewed (HR 59 and RR 29) QTc Review QTc: Reviewed (463 from 03/14/24) IV to PO Switch IV Medications: Reviewed Home Meds Home Med List reviewed: Reviewed Relevent Home Meds Not ordered & why?: buprenorphine (here for OD) Current Meds Current Medication Order Review: Intervened Comments: Patient was intubated overnight and had 2 orders for propofol. Reached out to provider who discontinued one of the orders. Patient was then successfully extubated this AM and remaining propofol order was discontinued.
[2024-03-15] MEDS: HYDROmorphone 2 MG/ML SYR 1 MG IVP (11:54)
--- NOTE | 2024-03-15 14:11 | PGE_ITS ---
Date of Service Date of service: 03/15/24 Time of Service: 10:00 Assessment and Plan Assessment and plan (1) Overdose: Start date: 03/14/24 Status: Acute Assessment and plan: Polysubstance overdose with cocaine and presumed fentanyl/xylazine. head CT negative. On admission there was some concern for organophophate toxicity but poison control felt this unliekly. Now extubated. He was clearly experiencing severe opioid withdrawal symtpoms that responded to hydromorphone. Some stridor initially after extubation, given dexamethasone x 1 and albuterol, hasn't recurred. Continue supportive care. Qualifiers: Encounter type: initial encounter Injury intent: undetermined intent Qualified Code(s): T50.904A - Poisoning by unspecified drugs, medicaments and biological substances, undetermined, initial encounter (2) Opioid use disorder, severe, on maintenance therapy, dependence: Status: Chronic Assessment and plan: Patient is prescribed Suboxone chronically and has cocaine in his urine, likely using fentanyl. Will continue to treat with opiates to avoid further withdrawal. Transition back to buprenorphine after discussion with patients. We may need to use low dose induction protocol. (3) ADHD (attention deficit hyperactivity disorder): Assessment and plan: Medical therapy but is may need to be reevaluated patient is not coping well with social situation. He appears to be working but he is living at home with his mother. At least he appears to have some support systems. Qualifiers: Attention deficit-hyperactivity disorder type: other specified Qualified Code(s): F90.8 - Attention-deficit hyperactivity disorder, other type (4) Traumatic ulceration of tongue: Status: Acute Assessment and plan: From biting a/w withdrawal. Also had pre-existing nodule seen earlier in the month in ED that may have been post-traumatic. (5) Hypokalemia: Status: Acute Assessment and plan: replaced this morning, follow (6) Abnormal thyroid function test: Status: Acute Assessment and plan: TSH mildly low in acute illness. Get free T4, but I doubt treatment will be indicated. (7) Elevated troponin I level: Status: Acute Assessment and plan: Mild elevation a/w polysubstance overdose including cocaine. EKG not c/w ischemia/ACS. Continue to follow until downtrending. Subjective Subjective Patient reports: denies diarrhea or fever Interval history since last seen: Intubated overnight in ED for mental status. This morning after withdrawal of propofol sedation, patient was breathing on his own but was very slow to wake up. He was eventually extubated. After extubation he had jaw clenching and tounge biting, yawning, and pupils wide. Exam Narrative Exam Narrative: General: After extubation, responding to voice and touch but still somnolent, curled up. HEENT: Tongue and lips with bite wounds, throat not swollen red. Back: Not examined. Lungs: Breathing in 30-40s after extubation, back to 20s after given hydromorphone. Clear to auscultation without focalizing rales or rhonchi. Heart: Regular rate and rhythm with no murmurs gallops appreciated. Abdomen: +BS, soft nontender to palpation no palpable hepatosplenomegaly. Skin: Normal color, was clammy but more dry after hydromorphone. Neuro: Cranial nerves grossly intact, pupils reactive, moving 4 extremities, tone normalized after hydromorphone. Objective Last Vital Signs Temp 36.8 C 03/15/24 03:37 Pulse 64 03/15/24 12:02 Resp 34 H 03/15/24 12:02 BP 164/98 H 03/15/24 12:02 Pulse Ox 96 03/15/24 12:02 Laboratory Results - last 24 hr 03/14/24 03/14/24 03/14/24 18:11 19:10 20:40 WBC 8.39 RBC 5.45 Hgb 15.4 Hct 47.4 MCV 87 MCH 28.3 MCHC 32.5 RDW 12.8 Plt Count 207 MPV 10.2 Immature Gran % 0.2 Neutrophils % 64.8 Lymphocytes % 27.4 Monocytes % 7.2 Eosinophils % 0.2 Basophils % 0.2 Nucleated RBC % 0.0 Absolute Neutrophils 5.43 Absolute Lymphocytes 2.30 Absolute Monocytes 0.60 Absolute Eosinophils 0.02 Absolute Basophils 0.02 PT 10.1 INR 1.0 APTT 24.0 VBG pH 7.46 H VBG pCO2 41 VBG pO2 27 VBG HCO3 29 H VBG Total CO2 25 VBG O2 Saturation 52 VBG Base Excess 5 H Sodium 145 Potassium 4.2 Chloride 105 Carbon Dioxide 28.0 Anion Gap 12.0 H BUN 6 L Creatinine 1.1 Est GFR (CKD-EPI 2020) 89.78 Glucose 129 H Calcium 9.4 Magnesium 2.2 Total Bilirubin 0.62 AST 37 ALT 52 Alkaline Phosphatase 120 H Ammonia 15 Creatine Kinase 364 H Troponin I 24 38 NT-Pro-B Natriuret Pep 906 H Total Protein 8.1 Albumin 3.8 Lipase 23 TSH 0.36 Urine Color Yellow Urine Clarity Clear Urine pH 8.5 H Ur Specific [place] 1.020 Urine Protein 30 H Urine Ketones 15 H Urine Blood Negative Urine Nitrite Negative Urine Bilirubin Negative Urine Urobilinogen >=8.0 H Ur Leukocyte Esterase Negative Urine RBC 0-2 Urine WBC 0-2 Ur Epithelial Cells Negative Urine Crystals Negative Urine Bacteria Negative Urine Mucus Negative Ur Culture Indicated? No Urine Glucose Negative Salicylates 2.9 Urine Opiates Screen Negative Urine Methadone Screen Negative Acetaminophen < 2 Ur Barbiturates Screen Negative Ur Tricyclics Screen Negative Bupropion Cancelled Hydroxybupropion Cancelled Ur Amphetamines Screen Negative U Benzodiazepines Scrn Negative Urine Cocaine Screen Positive A Ur THC Screen Positive A Ethyl Alcohol < 3.0 COVID-19 Source SARS-CoV-2 (PCR) Influenza Type A (PCR) Influenza Type B (PCR) RSV (PCR) Add-On Test Request ABO/Rh A Positive Antibody Screen NEGATIVE 03/14/24 03/15/24 03/15/24 21:55 05:50 11:05 WBC 12.19 H RBC 5.00 Hgb 14.2 Hct 43.2 MCV 86 MCH 28.4 MCHC 32.9 RDW 13.1 Plt Count 236 MPV 11.0 Immature Gran % Neutrophils % Lymphocytes % Monocytes % Eosinophils % Basophils % Nucleated RBC % Absolute Neutrophils Absolute Lymphocytes Absolute Monocytes Absolute Eosinophils Absolute Basophils PT INR APTT VBG pH 7.36 7.56 H VBG pCO2 47 28 L VBG pO2 257 85 VBG HCO3 27 25 VBG Total CO2 21 L VBG O2 Saturation > 99 99 VBG Base Excess 1 3 Sodium 144 Potassium 3.2 L D Chloride 106 Carbon Dioxide 26.0 Anion Gap 12.0 H BUN 8 Creatinine 0.8 Est GFR (CKD-EPI 2020) 118.36 Glucose 111 H Calcium 8.7 Magnesium Total Bilirubin 0.68 AST 30 ALT 42 Alkaline Phosphatase 107 Ammonia Creatine Kinase Troponin I 85 H* NT-Pro-B Natriuret Pep Total Protein 7.4 Albumin 3.5 Lipase TSH 0.21 L Urine Color Urine Clarity Urine pH Ur Specific [place] Urine Protein Urine Ketones Urine Blood Urine Nitrite Urine Bilirubin Urine Urobilinogen Ur Leukocyte Esterase Urine RBC Urine WBC Ur Epithelial Cells Urine Crystals Urine Bacteria Urine Mucus Ur Culture Indicated? Urine Glucose Salicylates Urine Opiates Screen Urine Methadone Screen Acetaminophen Ur Barbiturates Screen Ur Tricyclics Screen Bupropion Hydroxybupropion Ur Amphetamines Screen U Benzodiazepines Scrn Urine Cocaine Screen Ur THC Screen Ethyl Alcohol COVID-19 Source Nasopharynx SARS-CoV-2 (PCR) Negative Influenza Type A (PCR) Negative Influenza Type B (PCR) Negative RSV (PCR) Negative Add-On Test Request DONE ABO/Rh Antibody Screen Time Spent with Patient Time Spent with Patient: >50 minutes Time was spent: preparing to see the patient(eg.review tests), obtaining and/or reviewing separately otained hiistory, ordering medications,tests, procedures, referring, communicating with other health day care attendant, indepentently interpreting results, counseling the patient and care coordination
[2024-03-15] MEDS: HYDROmorphone 2 MG/ML VIAL 1 MG IVP ×6 (14:46→23:40)
[2024-03-15 15:45] LABS: Troponin I 68 ng/L (<or=76)
--- NOTE | 2024-03-15 21:07 | NUR.NOTE ---
Nursing Note: seems to be withdrawing, has had 2 episodes that he has severe lockjaw, gets rigid, complains of mouth pain, get apneic for a couple seconds, zv=509/94, HR=69, o2 sat=99%, dilaudid given as ordered prn & helps with these symptoms, updated Dr Mcginnis on pt's condition, no new orders given, will monitor.
[2024-03-15 22:06] LABS: Clarity Clear (Clear); Specific Gravity 1.024 (1.005-1.025)
[2024-03-15 22:07] LABS: Bacteria Rare HPF (Negative); Bilirubin Color Interference (Negative); Blood Color Interference (Negative); C & S Indicated? No; Casts Negative LPF (Negative); Crystals Negative HPF (Negative); Epithelial Cells Rare HPF (Negative); Glucose Color Interference mg/dL (Negative); Ketones Color Interference mg/dL (Negative); Leukocyte Esterase Color Interference (Negative); Mucus Trace (Negative); Nitrite Color Interference (Negative); Urobilinogen Color Interference mg/dL (Up to 0.2); WBC 0-2 HPF (0-5)
--- NOTE | 2024-03-15 22:14 | NUR.NOTE ---
Nursing Note: Spoke to Dr Mcginnis, updated on pt's withdrawl episode and elevated bp, no new orders, MD states continue giving his prn meds to control, will continue to monitor vitals, any changes will notify .
[2024-03-16] VITALS (41 sets, daily range): BP systolic 123–180; BP diastolic 62–104; PULSE 50–91; RESP 11–34; TEMP 37–38; O2SAT 95–100
[2024-03-16] MEDS: Ondansetron 4 MG/2 ML VIAL IVP ×2 (00:35→20:52)
--- NOTE | 2024-03-16 00:35 | NUR.NOTE ---
Nursing Note: Pt having nausea, states feels like I am going to throw up, Dr Mcginnis made aware, new orders given, pt made aware and verbalized understanding.
[2024-03-16] MEDS: Acetaminophen 325 MG TAB PO ×2 (01:20→23:24)
[2024-03-16] MEDS: HYDROmorphone 2 MG/ML VIAL 1 MG IVP ×15 (01:26→23:03)
[2024-03-16] MEDS: Normal Saline 1,000 ML 125 ML IV ×3 (01:30→19:05)
[2024-03-16 07:05] LABS: Anion Gap 13.1 mmol/L (3-11); BUN 11 mg/dL (7-18); CO2 24.9 mmol/L (21.0-32.0); CREATININE 0.8 mg/dL (0.70-1.30); Calcium 8.7 mg/dL (8.5-10.1); Chloride 103 mmol/L (98-107); Estimated GFR 118.36 (mL/min/1.73m2); FREE T4 1.08 ng/dL (0.76-1.46); Glucose 125 mg/dL (74-106); Potassium 3.4 mmol/L (3.5-5.1); Sodium 141 mmol/L (136-145)
--- NOTE | 2024-03-16 08:28 | PDOC.CMPRO ---
Date of service: 03/16/24 Time of Service: 08:29 Care Management Progress Note Progress Note Text Progress Note Text: EDGAR has visited the ICU x 3 today, but has not been able to talk with Dangelo. He remains sleepy and is confused when alert. CM has also attempt to call Dangelo's Dad 3 times today, no answer and not able to leave a message. Dangelo had relayed to the provider that he would like to see his dad. Discharge Potential Discharge Needs: PCP F/U Appt (Dangelo will need to establish with new PCP T-parker Caraballo) Anticipated Barriers to Discharge: None Identified Plan: Dangelo's discharge plan remains uncertain. Dangelo will need to establish with a new PCP. His PCP is listed as the provider from [facility]. T-doc was Manoj Caraballo, and an appointment will be made with him prior to Dangelo's discharge. Anticipate that Dangelo will want some kind of substance abuse support, wether as inpatient or outpatient. CM will continue to follow closely and adjust the plan as needed. SDOH(Care Management) Screening Will the Patient Participate in the Screening?: Unable to obtain
[2024-03-16] MEDS: Enoxaparin 40 MG/0.4 ML SYR SC (08:33)
[2024-03-16] MEDS: Normal Saline Flush 10 ML SYR IVP ×2 (08:34→20:06)
--- NOTE | 2024-03-16 09:35 | PGE_ITS ---
Date of Service Date of service: 03/16/24 Time of Service: 09:35 Assessment and Plan Assessment and plan (1) Overdose: Start date: 03/14/24 Status: Acute Assessment and plan: Polysubstance overdose with cocaine and presumed fentanyl/xylazine. He confirms herion use before admission. head CT negative. On admission there was some concern for organophophate toxicity but poison control felt this unlikely. Now extubated. He has clearly experiencing severe opioid withdrawal symtpoms that responded to hydromorphone, but jaw clenching/movements atypical I am concerned with ongoing suppressed mental status off regular sedation. He is slowly improving, but he may have suffered an anoxic brain injury. Will consider imaging if he doesn't clear up today, MRI would be preferable as he already had CT and MRI more sensitive.. Another patient here with similar pattern, we may be dealing with a new substance in the drug supply. Speech evaluation today to see if we can feed him and use oral medication. Continue supportive care. Qualifiers: Encounter type: initial encounter Injury intent: undetermined intent Qualified Code(s): T50.904A - Poisoning by unspecified drugs, medicaments and biological substances, undetermined, initial encounter (2) Opioid use disorder, severe, on maintenance therapy, dependence: Status: Chronic Assessment and plan: Patient is prescribed Suboxone chronically and has cocaine in his urine. Reports heroin likely using fentanyl/mixed opioids and other sedatives. Will continue to treat with opiates to avoid further withdrawal. Transition back to buprenorphine after discussion with patients. We may need to use low dose induction protocol. I would like to see his MS improve more, get him some longer acting oral opioids before starting this process. (3) Traumatic ulceration of tongue: Status: Acute Assessment and plan: From biting a/w withdrawal. Also had pre-existing nodule seen earlier in the month in ED that may have been post-traumatic. His airway doesn't seem to be an issue, s/p one dose of dexamethasone for stridor post exubation. Speech/swallow evaluation ordered. (4) Hypokalemia: Status: Acute Assessment and plan: replaced again this morning, change to oral if we are able, follow (5) Elevated troponin I level: Status: Acute Assessment and plan: Mild elevation a/w polysubstance overdose including cocaine. EKG not c/w ischemia/ACS. Downtrending by 10/16 AM. No intervention. (6) Abnormal thyroid function test: Status: Acute Assessment and plan: TSH mildly low in acute illness. Free T4 normal, no clear symptoms, no treatment indicated. (7) DVT prophylaxis: Status: Acute Assessment and plan: enoxaparin Subjective Subjective Interval history since last seen: Extubated 03/15 AM, but was prolonged process due to him being very slow to regain responsiveness off propofol Getting hourly hydromorphone to address opioid withdrawal a/w severe jaw clenching/biting tongue. Precedex drip ordered but not started as he responded to hydromorphone, prn lorazepam. Has been getting hourly hydromorphone 1mg. Fever to 38 03/15 afternoon. Cultures and CXR done without findings, fever has not recurred He was awake enough to tell me he wants his pain medication this morning. He has general pain. He states he used heroin before coming in. He confirms he was on suboxone. Exam Narrative Exam Narrative: General: now responding to voice, speech intelligible, states he is in the ED, doesn't know year. Knows his name and states he lives in [place]. Confirms daysi barker would like to see his father. HEENT: Tongue and lips with bite wounds. Still intermittent yawning and rhythmic jaw elizabeth, moreso when due for hydromorphone. Lungs: Breathing in 20s-30s, no further stridor. Clear to auscultation without focalizing rales or rhonchi. Heart: Regular rate and rhythm with no murmurs gallops appreciated. Abdomen: +BS, soft nontender to palpation no palpable hepatosplenomegaly. Skin: warm, no rashes. Neuro: Cranial nerves grossly intact, pupils reactive, moving 4 extremities Objective Last Vital Signs Temp 37.0 C 03/16/24 05:11 Pulse 56 L 03/16/24 06:01 Resp 22 03/16/24 06:30 BP 179/101 H 03/16/24 06:01 Pulse Ox 99 03/16/24 08:20 Laboratory Results - last 24 hr 03/15/24 03/15/24 03/15/24 11:05 15:22 21:25 VBG pH 7.56 H VBG pCO2 28 L VBG pO2 85 VBG HCO3 25 VBG Total CO2 21 L VBG O2 Saturation 99 VBG Base Excess 3 Sodium Potassium Chloride Carbon Dioxide Anion Gap BUN Creatinine Est GFR (CKD-EPI 2020) Glucose Calcium Troponin I 68 Free T4 Urine Color Green Urine Clarity Clear Urine pH Not Applicable Ur Specific [place] 1.024 Urine Protein Color Interference Urine Ketones Color Interference Urine Blood Color Interference Urine Nitrite Color Interference Urine Bilirubin Color Interference Urine Urobilinogen Color Interference Ur Leukocyte Esterase Color Interference Urine RBC 10-20 H Urine WBC 0-2 Ur Epithelial Cells Rare Urine Crystals Negative Urine Bacteria Rare Urine Casts Negative Urine Mucus Trace Ur Culture Indicated? No Urine Glucose Color Interference 03/16/24 05:26 VBG pH VBG pCO2 VBG pO2 VBG HCO3 VBG Total CO2 VBG O2 Saturation VBG Base Excess Sodium 141 Potassium 3.4 L Chloride 103 Carbon Dioxide 24.9 Anion Gap 13.1 H BUN 11 Creatinine 0.8 Est GFR (CKD-EPI 2020) 118.36 Glucose 125 H Calcium 8.7 Troponin I Free T4 1.08 Urine Color Urine Clarity Urine pH Ur Specific [place] Urine Protein Urine Ketones Urine Blood Urine Nitrite Urine Bilirubin Urine Urobilinogen Ur Leukocyte Esterase Urine RBC Urine WBC Ur Epithelial Cells Urine Crystals Urine Bacteria Urine Casts Urine Mucus Ur Culture Indicated? Urine Glucose Time Spent with Patient Time Spent with Patient: >50 minutes Time was spent: preparing to see the patient(eg.review tests), obtaining and/or reviewing separately otained hiistory, ordering medications,tests, procedures, referring, communicating with other health elderly caregiver, indepentently interpreting results, counseling the patient and care coordination
[2024-03-16] MEDS: POTASSIUM CHLORIDE 20 MEQ/100 ML BAG 50 MEQ IV_INF (10:07)
[2024-03-16 15:12] LABS: Xylazine, Confirmation Urine Negative ng/mL (<50)
--- NOTE | 2024-03-16 17:12 | PDOC.STREC ---
Date of service: 03/16/24 Time of Service: 12:35 Speech Therapy Recommendations Report ST Recommendations: DATA PROCESSING SPECIALIST evaluation attempted at 11:55 and again at 12:35. Patient too somnolent for participation. He did open his eyes briefly with verbal/tactile prompting but otherwise not alert enough for PO. Will re-attempt tomorrow.
[2024-03-16] MEDS: Mylanta Suspension 30 ML CUP PO (21:30)
[2024-03-17] VITALS (39 sets, daily range): BP systolic 112–172; BP diastolic 57–110; PULSE 57–101; RESP 14–28; TEMP 36.8–38.3; O2SAT 94–99
--- NOTE | 2024-03-17 | DI.CT_ITS ---
Exam(s) CT BRAIN NECK CTA EXAM: CT BRAIN NECK CTA CLINICAL HISTORY: MS depressed after OD, fever, jaw/neck posturing. TECHNIQUE: Imaging Protocol: Axial CT angiography was performed with multi-slice acquisition and mu lti-planar and/or 3D reconstructions. CONTRAST MATERIAL: Intravenous: Omnipaque 350 contrast volume:70 mL COMPARISON: CT CT HEAD WO from 03/14/2024 FINDINGS: CT Head W/O and W: Ventricles and Extra axial spaces: Normal in size and morphology for the patient's age. Hemorrhage: None. Cerebral parenchyma: No acute territorial infarct. There is no mass effect. Midline shift: None. Brainstem/Cerebellum: Normal. Calvarium: Normal. Visualized Paranasal sinuses/Mastoids: Clear. Soft Tissues: Unremarkable. Enhancement: Unremarkable. CTA Neck W: Common Carotid: Right: No dissection, occlusion or significant stenosis. Left: No dissection, occlusion or significant stenosis. External Carotid: Right: No occlusion or significant stenosis. Left: No occlusion or significant stenosis. Internal Carotid: Right: No dissection, occlusion or significant stenosis. Left: No dissection, occlusion or significant stenosis. Vertebral Artery: Right: No dissection, occlusion or significant stenosis. Left: No dissection, occlusion or significant stenosis. Lung Apices: Normal. Bones: Within normal limits for the patient's age. Soft Tissues: Normal. Thyroid gland: Unremarkable. CTA Brain W: Internal Carotid Arteries: No evidence of occlusion, significant stenosis or aneurysm. Anterior Cerebral Arteries: Right: No aneurysm, occlusion or significant stenosis. Left: No aneurysm, occlusion or significant stenosis. Middle Cerebral Arteries: Right: No aneurysm, occlusion or significant stenosis. Left: No aneurysm, occlusion or significant stenosis. Posterior Cerebral Arteries: Right: No aneurysm, occlusion or significant stenosis. Left: No aneurysm, occlusion or significant stenosis. Vertebral Arteries: Right: No aneurysm, occlusion or significant stenosis. Left: No aneurysm, occlusion or significant stenosis. Basilar Artery: No aneurysm, occlusion or significant stenosis. IMPRESSION: 1. No large vessel occlusion or significant stenosis on the CT angiography of the head. 2. No acute intracranial process. 3. No occlusion or significant stenosis on the CT angiography of the neck. RADIATION DOSE DELIVERED: 2,256.65mGy.cm Total DLP DATA REPOSITORY: All CT scans at this facility are submitted to the National Radiology Data Registry (NRDR) Dose Index Registry (DIR) with the [employer] (ACR). RADIATION OPTIMIZATION: All CT scans at this facility use at least one of these dose optimization te chniques: automated exposure control; mA and/or kV adjustment per patient size (includes targeted exa ms where dose is matched to clinical indication); or iterative reconstruction.
--- NOTE | 2024-03-17 | DI.RAD_ITS ---
Exam(s) XR PORTABLE CHEST AP EXAM: XR PORTABLE CHEST AP CLINICAL HISTORY: fever cough TECHNIQUE: 2D digital imaging was performed of the chest. One image was obtained. An AP view was ob tained. COMPARISON: CR XR PORTABLE CHEST AP from 03/15/2024 FINDINGS: MEDIASTINUM: Normal. HEART: Normal. PULMONARY VASCULATURE: Normal. LUNGS: Clear. PLEURAL SPACE: No pleural effusion or pneumothorax. BONE:Within normal limits for the patient's age. OTHER FINDINGS:Normal. IMPRESSION: No acute pulmonary findings. DATA REPOSITORY: RADIATION DOSE DELIVERED:
[2024-03-17] MEDS: HYDROmorphone 2 MG/ML VIAL 1 MG IVP ×7 (00:58→10:05)
[2024-03-17 01:58] LABS: Abs Immature Grans 0.02 10^3/uL (0.0-0.06); Absolute Basophil Count 0.01 10^3/uL (0.0-0.2); Absolute Eosinophil Count 0.02 10^3/uL (0.0-0.7); Absolute Lymphocyte Count 1.87 10^3/uL (1.2-3.4); Absolute Monocyte Count 0.98 10^3/uL (0.1-0.8); Absolute Neutrophil Count 6.68 10^3/uL (1.2-6.7); Basophils % 0.1 %; Eosinophils % 0.2 %; HCT 42.4 % (40.0-50.0); HGB 14.5 g/dL (13.5-17.5); Immature Grans % 0.2 %; Lymphocytes % 19.5 %; MCH 29.1 pg (27.0-33.0); MCHC 34.2 % (32.0-36.0); MCV 85 fL (80-95); MPV 10.4 fL (8.0-11.0); Monocytes % 10.2 %; Neutrophils % 69.8 %; Platelet Count 205 10^3/uL (130-400); RBC 4.99 10^6/uL (4.36-5.78); RDW 12.8 % (11.8-14.1); RDW-SD 39.8 fL; WBC 9.58 10^3/uL (4.4-10.8)
[2024-03-17] MEDS: Ketorolac 15 MG/ML VIAL IVP (02:04)
[2024-03-17 02:07] LABS: Bilirubin Negative (Negative); Blood Trace-lysed (Negative); Clarity Clear (Clear); Glucose Negative (Negative); Ketones Trace mg/dL (Negative); Leukocyte Esterase Negative (Negative); Nitrite Negative (Negative); pH 7.5 (5-8)
[2024-03-17] MEDS: Normal Saline 1,000 ML 125 ML IV ×2 (02:09→12:16)
[2024-03-17 02:10] LABS: BUN 12 mg/dL (7-18); CREATININE 0.8 mg/dL (0.70-1.30); Calcium 8.5 mg/dL (8.5-10.1); Chloride 102 mmol/L (98-107); Estimated GFR 118.36 (mL/min/1.73m2); Glucose 113 mg/dL (74-106); Magnesium 2.4 mg/dL (1.8-2.4); Potassium 3.8 mmol/L (3.5-5.1); Sodium 140 mmol/L (136-145)
[2024-03-17 02:11] LABS: Bacteria Rare HPF (Negative); C & S Indicated? No; Casts Negative LPF (Negative); Crystals Negative HPF (Negative); Epithelial Cells Negative HPF (Negative); Mucus Negative (Negative); WBC Negative HPF (0-5)
[2024-03-17 02:38] LABS: COVID-19 PCR Negative (Negative); Influenza A PCR Negative (Negative); Influenza B PCR Negative (Negative); RSV PCR Negative (Negative)
--- NOTE | 2024-03-17 02:47 | NUR.NOTE ---
Nursing Note: Pt's becm=229.1 aux, spoke to Dr. Ellis made aware of pt's condiiton, new orders given, labs drawn and blood cultures, will await for results.
[2024-03-17 02:48] LABS: Source Nasopharynx
--- NOTE | 2024-03-17 03:10 | NUR.NOTE ---
Nursing Note:POrtable chest x-ray done at bedside, pt tolerated well, will monitor.
--- NOTE | 2024-03-17 05:03 | DI.VRAD_ITS ---
PROCEDURE INFORMATION: Exam: XR Chest Exam date and time: 03/17/2024 3:04 AM Age: 33 years old Clinical indication: Cough and fever; Additional info: Fever cough TECHNIQUE: Imaging protocol: Radiologic exam of the chest. Views: 1 view. COMPARISON: CR XR PORTABLE CHEST AP 03/15/2024 5:00 PM FINDINGS: Lungs: Unremarkable. No consolidation. Pleural spaces: Unremarkable. No pleural effusion. No pneumothorax. Heart/Mediastinum: Unremarkable. No cardiomegaly. Bones/joints: Unremarkable. IMPRESSION: No acute findings. Dictated and Authenticated by: Bk Morrow MD. Ordering:MAR Mckeon MD
[2024-03-17] MEDS: Normal Saline Flush 10 ML SYR IVP ×2 (07:55→21:34)
[2024-03-17] MEDS: Enoxaparin 40 MG/0.4 ML SYR SC (07:55)
--- NOTE | 2024-03-17 08:01 | W.PM.PROGNOT ---
Date of Service Date of service: 03/17/24 Time of Service: 08:02 Assessment and Plan Assessment and plan (1) Overdose: Start date: 03/14/24 Status: Acute Assessment and plan: Polysubstance overdose with cocaine and presumed fentanyl/xylazine. He confirms herion use before admission. head CT negative. CTA of neck and brain negative for abnormalities. No watershed infarct noted. Continues on IV dilaudid, will need to modify this due to shortages of this med. No further jaw clenching/movements noted today. Following speech evaluation, if stable, will feed him and use oral medication/pain meds. Continue supportive care. Qualifiers: Encounter type: initial encounter Injury intent: undetermined intent Qualified Code(s): T50.904A - Poisoning by unspecified drugs, medicaments and biological substances, undetermined, initial encounter (2) Opioid use disorder, severe, on maintenance therapy, dependence: Status: Chronic Assessment and plan: Patient is prescribed Suboxone chronically and has cocaine in his urine. Reports heroin likely using fentanyl/mixed opioids and other sedatives. Will continue to treat with opiates to avoid further withdrawal. Transition back to buprenorphine when can take PO. Will need to wait to witness MS improvement before can implement this plan. (3) Traumatic ulceration of tongue: Status: Acute Assessment and plan: No evidence of airway compromise. Follow clinically. Speech/swallow evaluation ordered. (4) Hypokalemia: Status: Acute Assessment and plan: stable, continue to monitor (5) Elevated troponin I level: Status: Acute Assessment and plan: Mild elevation a/w polysubstance overdose including cocaine. EKG not c/w ischemia/ACS. Downtrending in repeat labs. No intervention. (6) Abnormal thyroid function test: Status: Acute Assessment and plan: TSH mildly low in acute illness. Free T4 normal, no clear symptoms, no treatment indicated. (7) DVT prophylaxis: Status: Acute Assessment and plan: enoxaparin (8) Tobacco abuse: Status: Acute (9) Altered mental status: Status: Acute Assessment and plan: place patch and offer gum. Patient is talking with staff about this. Unable to glean his smoking history, will assume 1 PPD Subjective Subjective Interval history since last seen: Clinical course reviewed including notes, orders, labs, vitals, meds, imaging, and cultures. Care is discussed with primary nurse. I&O reveals positive fluid balance of 1.9 L White count is 9.6, hemoglobin 14.5, platelet 205 Sodium 140, potassium 3.8, creatinine 0.8 total bilirubin 0.78 Urinalysis today reveals urine pH 7.5, trace ketones, elevated urobilinogen Chest x-ray from today is reviewed both imaging and report. No evidence of pulmonary infiltrate or active pulmonary disease Patient is COVID-negative Blood cultures were drawn early this morning, remain pending Blood cultures from March [address] angiogram of the neck and brain without any significant abnormality. No space-occupying lesion, no watershed infarct, no evidence of arterial occlusion. Consider testing for tetrahydrozoline (visine), gamma hydroxybutyric acid and ketamine. Will discuss with laboratory. Exam Narrative Exam Narrative: Patient is arousable, but lethargic. He asks nursing staff for nicotine patch. He does not do more than mumble in answer to my questions. HEENT: Neck supple, conjunctiva non-injected, sclera non-icteric, Exam difficult due to patient positioning. No JVD, no A waves. No thyromegaly. No carotid bruit CHEST: Bilaterally symmetrical with shallow inspiration and expiration. No use of accessory muscles of respiration. No nasal flaring. RESP: Clear to auscultation bilaterally, no rales, rhonchi or wheeze, no pleural friction rub, no post-tussive crackles or apical rales. COR: RRR without murmur, normal S1, S2, no rub or gallop ABDOMEN: Soft, non tender diffusely, normally active bowel sounds diffusely, No hepatosplenomegaly, No abdominal bruit, no masses, no tenderness on deep abdominal palpation. G/U: deferred Rectal: deferred MUSCULOSKELETAL: Bilaterally symmetrical, no muscle belly tenderness or mass DERMIS: Skin warm and dry, no ulcers or rashes, multiple mature tattoos EXTREMITIES: No cyanosis, clubbing or edema, no gross deformities of the large or small joints of the upper or lower extremities. NEUROLOGICAL: lethargic, arousable, non communicative to this examiner. unable to assess neuro exam. LYMPH: No anterior or posterior cervical, no supraclavicular, No axillary, no epitrochlear or femoral lymphadenopathy. Objective Last Vital Signs Temp 38.3 C H 03/17/24 01:00 Pulse 74 03/17/24 02:01 Resp 23 03/17/24 02:30 BP 170/95 H 03/17/24 02:01 Pulse Ox 97 03/17/24 07:39 Laboratory Results - last 24 hr 03/14/24 03/17/24 03/17/24 20:40 01:30 01:50 WBC 9.58 RBC 4.99 Hgb 14.5 Hct 42.4 MCV 85 MCH 29.1 MCHC 34.2 RDW 12.8 Plt Count 205 MPV 10.4 Immature Gran % 0.2 Neutrophils % 69.8 Lymphocytes % 19.5 Monocytes % 10.2 Eosinophils % 0.2 Basophils % 0.1 Nucleated RBC % 0.0 Absolute Neutrophils 6.68 Absolute Lymphocytes 1.87 Absolute Monocytes 0.98 H Absolute Eosinophils 0.02 Absolute Basophils 0.01 Sodium 140 Potassium 3.8 Chloride 102 Carbon Dioxide 26.0 Anion Gap 12.0 H BUN 12 Creatinine 0.8 Est GFR (CKD-EPI 2020) 118.36 Glucose 113 H Calcium 8.5 Magnesium 2.4 Urine Color Yellow Urine Clarity Clear Urine pH 7.5 Ur Specific [place] 1.020 Urine Protein Negative Urine Ketones Trace H Urine Blood Trace-lysed H Urine Nitrite Negative Urine Bilirubin Negative Urine Urobilinogen 2.0 H Ur Leukocyte Esterase Negative Urine RBC 3-5 H Urine WBC Negative Ur Epithelial Cells Negative Urine Crystals Negative Urine Bacteria Rare Urine Casts Negative Urine Mucus Negative Ur Culture Indicated? No Urine Glucose Negative Urine Xylazine Negative COVID-19 Source Nasopharynx SARS-CoV-2 (PCR) Negative Influenza Type A (PCR) Negative Influenza Type B (PCR) Negative RSV (PCR) Negative Time Spent with Patient Time Spent with Patient: >50 minutes Time was spent: preparing to see the patient(eg.review tests), obtaining and/or reviewing separately otained hiistory, ordering medications,tests, procedures, referring, communicating with other health health care sanitary technician, indepentently interpreting results, counseling the patient and care coordination
--- NOTE | 2024-03-17 09:53 | PDOC.CMPRO ---
Date of service: 03/17/24 Time of Service: 09:53 Care Management Progress Note Progress Note Text Progress Note Text: Dangelo was groggy, but awake,when CM met with him this morning. He was asking to go outside for a cigarette. He was agreeable to a nicotine patch, which was ordered. Dangelo was able to give CM the phone number for his Dad, also Dangelo [phone]. Dangelo's step mom, Radha, . Dangelo asked CM for pain meds. RN came in and gave the med, and then Dangelo became very sleepy and was no longer able to answer any questions. CM attempted to reach Dad, but was unable to connect. Shortly thereafter, Radha appeared at the hospital and asked to speak with CM. CM did not divulge information, as Radha is not on the HIPAA, but was able to obtain some helpful information. Dangelo has been in and out of shelter since he was 14yo and has had a history of drug misuse for just as long. Dangelo's mom lives in the [facility], and is a drug user. Radha is a shared home caregiver, so they can not take Dangelo into their home. Dangelo has burned bridges with his sister, and a close family friend, and will not be allowed in their homes with active drug use. Dangelo has has been homeless for 1-2 weeks. He had been living in a sober house in [place], but broke curfew. He refused the drug test, and took the punishment of losing his room for 5 days. After the 5 days, his room had been given to someone else. Radha did not know where he was staying, but thinks Dangelo might have a girlfriend, could have been staying there? Radha stated that her would be up to visit with Dangelo after work. CM went to let Dangelo know that his Dad was planning to come visit him after work. Before CM could speak, Dangelo asked to have his catheter out so that he could leave. He told CM that his dad was going to pick him up and take him to [facility]. RN told Dangelo that he is not medically cleared, still using too many meds, and would not be accepted at [facility]. Dangelo was angry, but not aggressive. RN informed CM that Dangelo had called 911 earlier in the day to report he wanted to leave the hospital. WIRE REPAIRER called Dangelo's dad, and informed him that Dangelo is thinking that he would take him home. She did not want him blind sided when he came to visit. He was unsure if he would still visit. Discharge Potential Discharge Needs: PCP F/U Appt and Other (alcohol and drug rehabilitation) Anticipated Barriers to Discharge: None Identified Patient/Family Education Needs: Review discharge instructions, discuss Ask Me Three Transportation: Other Plan: Dangelo's disposition is still unclear. He is homeless, and his closest supports can no longer take him in. Dangeol will need to establish with a new PCP. His PCP is listed as the provider from [facility]. T-doc was Manoj Caraballo, and an appointment will be made with him prior to Dangelo's discharge. Anticipate that Dangelo will want some kind of substance abuse support, wether as inpatient or outpatient. CM will continue to follow closely and adjust the plan as needed. SDOH(Care Management) Screening Will the Patient Participate in the Screening?: Unable to obtain
[2024-03-17] MEDS: Omnipaque 350 MG/ML 100 ML BTL 70 ML IJ (10:14)
[2024-03-17] MEDS: Normal Saline - Diluent 50 ML VIAL IJ (10:15)
[2024-03-17 10:46] LABS: ALT 33 U/L (16-63); AST 18 U/L (15-37); Albumin 3.2 g/dL (3.4-5.0); Alkaline Phosphatase 98 U/L (46-116); Bilirubin, Direct 0.2 mg/dL (0.0-0.2); Bilirubin, Total 0.78 mg/dL (0.2-1.0); Total Protein 7.2 g/dL (6.4-8.2)
[2024-03-17 11:35] LABS: Fentanyl Scr w/Rfx Confirm Positive ng/mL (<1)
[2024-03-17] MEDS: HYDROmorphone 2 MG/ML VIAL IVP ×4 (12:15→21:34)
--- NOTE | 2024-03-17 15:17 | SP_ITS ---
Date of service: 03/17/24 Time of Service: 15:00 Subjective Clinical (Bedside) Swallow Evaluation - Inpatient Speech Language Pathology Referred by: Mike Ellis Start time: 15:00 End time: 15:15 Total patient contact: 15m Referral Type: Routine Swallow Consult Routine Cognitive/Communciation Consult Precautions: Standard, Fall, Full Code Reason for Referral/HPI: Dangelo is a 33 y/o M admitted for polysubstance overdose who was extubated yesterday in the ICU and DIRECTOR CARDIOLOGY consulted for bedside swallow eval post-extubation. DIRECTOR CARDIOLOGY initially attempting to contact patient yesterday but he was unable to participate, too somnolant, etc. He did sustain significant incidental tongue trauma from tongue bite and AMS upon extubation. DIRECTOR CARDIOLOGY IMPRESSIONS & RECOMMENDATIONS: While exam was limited due to patient refusal patient appears at risk of aspiration due to cognitive dysphagia impacting coordination of breathing and swallowing. Additionally, he has significant tongue trauma impacting his oral manipulation. DIRECTOR CARDIOLOGY will continue to follow for additional swallow evaluation and cognitive-communication evaluation as able. At this time recommend pureed diet and thin liquids with precautions in place as below, with likelihood of incremental upgrade to baseline as mental status and tongue trauma resolve. FURTHER INPATIENT DIRECTOR CARDIOLOGY SERVICES: Patient to be followed while on unit DISCHARGE RECOMMENDATIONS: Suspect no further DIRECTOR CARDIOLOGY services indicated once ready for discharge, however, pending further evaluation as MS resolves. Diet modification is indicated as follows for the purpose of reduced risk of aspiration, reduced risk of choking, energy conservation, pain reduction. Diet Recommendations: ? SOLIDS: 4-Pureed Solids LIQUIDS: 0-Thin Liquids MEDICATIONS: Whole, one at a time with applesauce RISK MANAGEMENT: Level of Assistance/Supervision: 1:1 close supervision for all PO intake Positioning and environment: PO intake only when awake/alert? Reduce auditory and/or visual distractions when eating [place] upright for all PO intake. Oral hygiene BID/2x per day Strategies/Adaptations/Assistive Equipment: Small sips Small bites Alternate intake of liquids and solids Reflux Precautions: Maintain fully upright position at least 30 minutes after meals Education Provided to: Nursing Topics Addressed: impact of current diagnoses on swallow function rationale and instruction for additional risk management strategies as below SUBJECTIVE: Patient received: alert/awake, lethargic. Reluctant to evaluation. At this time, he is somewhat verbally agitated but does not pull at lines, etc. Very somnolent earlier today, now awake and requesting cigarettes, requesting sedation, but also stating that he is going to go home and that his father is going to pick him up. He participated in limited assessment before refusing further PO trials with DIRECTOR CARDIOLOGY, he was insistent on having nursing give him cigarettes and asking to go home. Per nursing, he has been swallowing water and a pill without incident. Pain Reported denies Baseline Swallow Function: Patient denies swallowing difficulty prior to admission and eats a regular diet at baseline. OBJECTIVE Patient positioning: As upright as possible using HOB/bed tilt controls Oral care/mucosal appearance: patient refuses. appears with dry, ropey secretions in oral cavity. significant R lingual trauma likely from tongue bite when sedated. Respiratory status: Room air Dentition: appearing largely natural - patient does not respond when questioned Orientation/Mental status: Oriented to self, situation. Appears with low insight into deficits, recall of recent events is impaired, agitated, follows simple instructions. Speech: Dysarthric, low articulatory power and precision, fatigued. Cranial Nerve Assessment: CN V ? Trigeminal reduced jaw excursion CN VII- Facial decreased coordination, strenght CN IX ? Glossopharyngeal WNL palatal elevation with phonation. No evidence of nasal emissions CN X ? Vagus WNL Vocal quality and volume. Strong/sharp volitional cough CX XII ? Hypoglossal Reduced lingual strength and ROM/suspect 2/2 pain PO Intake: Trials Assessed: IDDSI 0 Thin Liquids IDDSI 4 Puree Solid Oral Phase Findings: Anterior leakage from mouth Difficulty with bolus manipulation Difficulty with a-p transport Difficulty chewing Residue Pharyngeal Phase Findings: Adequate hyolaryngeal elevation/excursion Cough after swallow x1 delayed with liquids Appears short of breath when taking consecutive sips liquid ? PLAN: Frequency: 2-3x/week for 1-2 weeks Goals: Residential Goals: Patient will remain free from aspiration-related illness, malnutrition, and dehydration. Short Term Goals: Patient will participate in ongoing assessment of dysphagia and cognitive-communication while hospitalized. Patient will tolerate Puree Diet and Thin liquids without overt s/s aspiration across 2/2 visits. Patient will tolerate PO trials for consideration of diet upgrade without overt s/s aspiration across 2/2 visits.
[2024-03-17] MEDS: Nicotine 14 MG/24 HR PATCH TD (15:31)
[2024-03-17] MEDS: Nicotine 4 MG GUM CH ×2 (16:05→18:18)
--- NOTE | 2024-03-17 17:07 | W.PM.PROGNOT ---
Date of Service Date of service: 03/17/24 Time of Service: 17:08 Subjective Subjective Interval history since last seen: I was called stat to the ICU about 75 minutes ago as the patient was stating he was going to leave the hospital. He wanted to have a cigarette. Hours earlier nicotine patch and nicorette gum were ordered and communicated to patient's primary nurse he was to get both. Unfortunately the patch was applied and the gum was not given and patient was having a nicotine craving. He had apparently called his father and arranged for his father to pick him up and take him to [facility] for rehab. Father was contacted by staff and was relayed that patient was not medically cleared for discharge and it would be doubtful that he would be accepted at [facility] without medical clearance. Father informed staff that he misunderstood and father said he would not be coming in to pick his son up. Patient complained regarding feeling poorly and his Dilaudid, ativan and additional order of toradol was placed. Patient was advised it is in his best interest to stay in the hospital and if he is planning on going home to take the same substance he took before he came to the hospital on the day of admission, he is informed that he could have , that substance is not safe, and nearly killed him. Patient, while not completely alert, is far more alert than he has been earlier this morning when I first met him. He states he is not getting enough pain medicine and wants to have a cigarette. Nicorette gum is obtained for him and he consumes it. I had asked earlier if his cigarette consumption was known, at this time I asked and he takes 2 packs per day. At this time I am called back again urgently from ED to come back to ICU. I am informed that patient is stating he will leave the hospital. He is laying in bed and appears more comfortable. Patient has still not recieved the toradol ordered NOW 42 minutes ago @ 16:30. Nursing is now telling me they have concerns about giving the toradol IM. I discussed with pharmacy and confirmed that product must be given IM. I relayed this information to the primary nurse. I have called the patient's father at [phone] three times (twice before starting this note, once at 17:29). All three times call went to [employer]. I left a message with my name and asking father to call the ICU at [facility] to speak to me. Patient placed on Precedex. Objective Last Vital Signs Temp 37.8 C H 03/17/24 08:01 Pulse 69 03/17/24 14:01 Resp 15 03/17/24 15:00 BP 166/99 H 03/17/24 14:01 Pulse Ox 97 03/17/24 15:00 Laboratory Results - last 24 hr 03/14/24 03/17/24 03/17/24 20:40 01:30 01:50 WBC 9.58 RBC 4.99 Hgb 14.5 Hct 42.4 MCV 85 MCH 29.1 MCHC 34.2 RDW 12.8 Plt Count 205 MPV 10.4 Immature Gran % 0.2 Neutrophils % 69.8 Lymphocytes % 19.5 Monocytes % 10.2 Eosinophils % 0.2 Basophils % 0.1 Nucleated RBC % 0.0 Absolute Neutrophils 6.68 Absolute Lymphocytes 1.87 Absolute Monocytes 0.98 H Absolute Eosinophils 0.02 Absolute Basophils 0.01 Sodium 140 Potassium 3.8 Chloride 102 Carbon Dioxide 26.0 Anion Gap 12.0 H BUN 12 Creatinine 0.8 Est GFR (CKD-EPI 2020) 118.36 Glucose 113 H Calcium 8.5 Magnesium 2.4 Total Bilirubin 0.78 Conjugated Bilirubin 0.2 AST 18 ALT 33 Alkaline Phosphatase 98 Total Protein 7.2 Albumin 3.2 L Urine Color Yellow Urine Clarity Clear Urine pH 7.5 Ur Specific [place] 1.020 Urine Protein Negative Urine Ketones Trace H Urine Blood Trace-lysed H Urine Nitrite Negative Urine Bilirubin Negative Urine Urobilinogen 2.0 H Ur Leukocyte Esterase Negative Urine RBC 3-5 H Urine WBC Negative Ur Epithelial Cells Negative Urine Crystals Negative Urine Bacteria Rare Urine Casts Negative Urine Mucus Negative Ur Culture Indicated? No Urine Glucose Negative Urine Fentanyl Screen Positive A COVID-19 Source Nasopharynx SARS-CoV-2 (PCR) Negative Influenza Type A (PCR) Negative Influenza Type B (PCR) Negative RSV (PCR) Negative Time Spent with Patient Time Spent with Patient: 35-49 minutes Time was spent: obtaining and/or reviewing separately otained hiistory, referring, communicating with other health manager medicare marketing, counseling the patient and care coordination
[2024-03-17] MEDS: Ketorolac 60 MG/2 ML VIAL IM (17:36)
[2024-03-17] MEDS: dexmedeTOMidine IN 0.9 % NACL 400 MCG/100 ML BTL IV (18:30)
[2024-03-18] VITALS (23 sets, daily range): BP systolic 97–121; BP diastolic 63–79; PULSE 52–83; RESP 9–19; TEMP 36.6–36.7; O2SAT 94–99
[2024-03-18] MEDS: HYDROmorphone 2 MG/ML VIAL IVP ×4 (01:16→08:41)
[2024-03-18] MEDS: Normal Saline Flush 10 ML SYR IVP ×4 (01:16→09:46)
[2024-03-18] MEDS: Nicotine 4 MG GUM CH ×3 (01:16→09:45)
[2024-03-18] MEDS: Ketorolac 30 MG/ML VIAL IV ×2 (02:46→09:46)
[2024-03-18 06:38] LABS: HCT 41.2 % (40.0-50.0); HGB 13.6 g/dL (13.5-17.5); MCH 28.5 pg (27.0-33.0); MCV 86 fL (80-95); MPV 9.5 fL (8.0-11.0); Platelet Count 160 10^3/uL (130-400); RBC 4.77 10^6/uL (4.36-5.78); RDW 12.7 % (11.8-14.1); RDW-SD 40.3 fL; WBC 5.22 10^3/uL (4.4-10.8)
[2024-03-18 06:59] LABS: ALT 27 U/L (16-63); AST 16 U/L (15-37); Alkaline Phosphatase 86 U/L (46-116); Anion Gap 6.7 mmol/L (3-11); BUN 17 mg/dL (7-18); Bilirubin, Total 0.67 mg/dL (0.2-1.0); CO2 28.3 mmol/L (21.0-32.0); CREATININE 0.9 mg/dL (0.70-1.30); Calcium 8.6 mg/dL (8.5-10.1); Chloride 107 mmol/L (98-107); Estimated GFR 114.22 (mL/min/1.73m2); Glucose 97 mg/dL (74-106); Potassium 3.7 mmol/L (3.5-5.1); Sodium 142 mmol/L (136-145); Total Protein 6.6 g/dL (6.4-8.2)
--- NOTE | 2024-03-18 08:36 | W.PM.PROGNOT ---
Date of Service Date of service: 03/18/24 Time of Service: 08:36 Subjective Subjective Interval history since last seen: Clinical course reviewed including notes, orders, labs, vitals, meds, imaging, and cultures. Care is discussed with primary nurse. I&O not accurate. No output is entered. Patient was placed on Precedex last night. Slept comfortably through the night. Blood cultures from 03/17 are positive in both sets for gram-positive cocci Blood cultures from March 15 no growth to date Repeat blood cultures not yet obtained, orders are entered for repeat blood cultures x 2 Vancomycin was begun earlier today. White count 5.2, hemoglobin 13.6, platelet count 160. Sodium 142 creatinine 0.9 Patient is COVID-negative CT angiogram of the neck and brain without any significant abnormality. No space-occupying lesion, no watershed infarct, no evidence of arterial occlusion. Consider testing for tetrahydrozoline (visine), gamma hydroxybutyric acid and ketamine. Will discuss with laboratory. Objective Last Vital Signs Temp 36.6 C 03/18/24 04:35 Pulse 52 L 03/18/24 06:01 Resp 15 03/18/24 06:01 BP 97/63 L 03/18/24 06:01 Pulse Ox 98 03/18/24 06:01 Laboratory Results - last 24 hr 03/14/24 03/17/24 03/18/24 20:40 01:30 05:35 WBC RBC Hgb Hct MCV MCH MCHC RDW Plt Count MPV VBG pH Cancelled VBG pCO2 Cancelled VBG pO2 Cancelled VBG HCO3 Cancelled VBG Total CO2 Cancelled VBG O2 Saturation Cancelled VBG Base Excess Cancelled Sodium Potassium Chloride Carbon Dioxide Anion Gap BUN Creatinine Est GFR (CKD-EPI 2020) Glucose Calcium Total Bilirubin 0.78 Conjugated Bilirubin 0.2 AST 18 ALT 33 Alkaline Phosphatase 98 Total Protein 7.2 Albumin 3.2 L Urine Fentanyl Screen Positive A 03/18/24 06:12 WBC 5.22 RBC 4.77 Hgb 13.6 Hct 41.2 MCV 86 MCH 28.5 MCHC 33.0 RDW 12.7 Plt Count 160 MPV 9.5 VBG pH VBG pCO2 VBG pO2 VBG HCO3 VBG Total CO2 VBG O2 Saturation VBG Base Excess Sodium 142 Potassium 3.7 Chloride 107 Carbon Dioxide 28.3 Anion Gap 6.7 BUN 17 Creatinine 0.9 Est GFR (CKD-EPI 2020) 114.22 Glucose 97 Calcium 8.6 Total Bilirubin 0.67 Conjugated Bilirubin AST 16 ALT 27 Alkaline Phosphatase 86 Total Protein 6.6 Albumin 3.0 L Urine Fentanyl Screen
[2024-03-18] MEDS: Nicotine 14 MG/24 HR PATCH TD (08:41)
[2024-03-18] MEDS: Enoxaparin 40 MG/0.4 ML SYR SC (08:42)
[2024-03-18] MEDS: Acetaminophen 500 MG TAB 1000 MG PO (09:57)
[2024-03-18] MEDS: oxyCODONE 10 MG TAB PO (10:05)
--- NOTE | 2024-03-18 13:44 | W.PM.DS.N ---
Date of service: 03/18/24 Time of Service: 13:44 DS: Diagnosis Discharge Diagnosis (1) Overdose: Status: Acute Asessment and Plan: Patient's overdose was atypical in nature and likely contributing factors included unexpected substances in the materials that the patient had ingested. We do not have understanding of what those substances could be. (2) Opioid use disorder, severe, on maintenance therapy, dependence: Status: Chronic Asessment and Plan: Patient has high-grade opioid use disorder. Does not appear to be interested in mental health intervention. (3) Traumatic ulceration of tongue: Status: Acute Asessment and Plan: Stable during admission. (4) Hypokalemia: Status: Acute Asessment and Plan: Resolved (5) Elevated troponin I level: Status: Acute Asessment and Plan: Resolved (6) Abnormal thyroid function test: Status: Acute Asessment and Plan: Stable, no intervention necessary (7) DVT prophylaxis: Status: Acute Asessment and Plan: Resolved at time of discharge (8) Tobacco abuse: Status: Acute Asessment and Plan: Smokes 2+ packs a day Unlikely to entertain smoking cessation (9) Altered mental status: Status: Acute Asessment and Plan: Mental status, although improved, does not appear to be at the patient's expected baseline at the time he left the hospital AGAINST MEDICAL ADVICE Discharge Plan Disposition Patient Disposition: Against Medical Advice Condition: Fair Discharge Details Reason For Visit: Overdose with sedation, Bradycardia, OUD on mainte Admit Date/Time: 03/14/24 20:45 Admit Provider: Adi Fisher Attending Provider: Adi Fisher Primary Care Provider: Veronica Agrawal [facility] Course Hospital Course: Patient admitted after unwitnessed drug overdose with signs of apnea. He was noted to have jaw tetany like activity with clenching which caused laceration of his tongue. He was intubated and continued to be intubated after admission to the ICU for approximately 24 hours. He was later extubated however remained lethargic. He had multiple imaging studies of the brain which showed no evidence of infarct or intracranial bleed or mass. Yesterday, approximately 24 hours prior to the patient's leaving AMA he wanted to smoke cigarettes. Nicotine patch and gum were substituted. Patient called his father asking him to pick him up and take him to [place] for voluntary admission. Father was advised that the patient is not medically stable for discharge and the father at that time declined coming to the hospital to pick him up. I personally attempted to call the father 3 times leaving 1 voicemail but never received a call back. It was attempted to provide pharmacologic care for the patient's complaints of whole body pain and anxiety. We were never able to address this fully due to the patient's semi-lethargic state. We were concerned about precipitating a respiratory event. Patient repeatedly expressed that he was arranging for a ride and someone would come pick him up. Patient had previously been advised ad nauseum that the substances that he obtained and ingested prior to his admission were very harmful and could possibly kill him if he reaccessed them and ingested them again. He was advised this morning that he has positive blood cultures for germ that could cause a serious intravascular infection and could be extremely harmful to his wellbeing and recovery. Repeat blood cultures were requested and the patient was started on intravenous vancomycin for GPC growth in 2 out of 2 blood cultures obtained yesterday. At this time, I am advised by nursing that the patient left the ICU AGAINST MEDICAL ADVICE. His lines were removed prior to his leaving the unit. I will send in a prescription for oral trimethoprim/sulfamethoxazole to the patient's pharmacy of choice as listed in the medical record. This was confirmed earlier today by Hill his primary nurse. Anticipatory planning for possible leaving AMA was discussed in detail with both Hill and his nurses yesterday. Home Meds and New Rx's Prescriptions: New sulfamethoxazole-trimethoprim [Bactrim DS] 800-160 mg tablet 1 tab PO BID Qty: 30 0RF Continued buprenorphine HCl 8 mg tablet, sublingual 16 mg SUBLINGUAL DAILY Discharge Orders Discharge Orders: Discharge Order (Routine); Ordered 03/18/24 Ordered By: Glenn Forman DS: Summary Time Spent with Patient providing and/or coordinating discharge services: Greater than 30 minutes Status at Discharge Functional status at discharge: independent ambulation Overall status at discharge: patient is not back to baseline Mental Status: other (Clouded by continued effects of the patient's overdose) Speech and Movement: agitated Mood: angry and other (Clouded by continued effects of the patient's overdose) Affect: indifferent Quality:SDOH Health Related Social Needs: No Data to Display Exam Narrative Exam Narrative: Patient is arousable, but lethargic. He has been on and off phone today. He is very withdrawn and does not engage his examiner in conversation. HEENT: Neck supple, conjunctiva non-injected, sclera non-icteric, Exam difficult due to patient positioning. No JVD, no A waves. No thyromegaly. No carotid bruit CHEST: Bilaterally symmetrical with shallow inspiration and expiration. No use of accessory muscles of respiration. No nasal flaring. RESP: Clear to auscultation bilaterally, no rales, rhonchi or wheeze, no pleural friction rub, no post-tussive crackles or apical rales. COR: RRR without murmur, normal S1, S2, no rub or gallop ABDOMEN: Soft, non tender diffusely, normally active bowel sounds diffusely, No hepatosplenomegaly, No abdominal bruit, no masses, no tenderness on deep abdominal palpation. G/U: deferred Rectal: deferred MUSCULOSKELETAL: Bilaterally symmetrical, no muscle belly tenderness or mass DERMIS: Skin warm and dry, no ulcers or rashes, multiple mature tattoos EXTREMITIES: No cyanosis, clubbing or edema, no gross deformities of the large or small joints of the upper or lower extremities. NEUROLOGICAL: lethargic, arousable, non communicative to this examiner. unable to assess neuro exam. LYMPH: No anterior or posterior cervical, no supraclavicular, No axillary, no epitrochlear or femoral lymphadenopathy. Psych Mental Status: other (Clouded by continued effects of the patient's overdose) Speech and Movement: agitated Mood: angry and other (Clouded by continued effects of the patient's overdose) Affect: indifferent DS: Data Vitals/I&O Vitals and I&O: Vital Signs Temperature 36.6 C 03/18/24 04:35 Temperature Source Temporal Artery Scan 03/18/24 04:35 Pulse 56 L 03/18/24 08:01 Pulse 58 L 03/18/24 12:00 Respiratory Rate 14 03/18/24 12:00 Respiratory Effort Mechanically Ventilated 03/14/24 22:20 Respiratory Depth Deep 03/14/24 18:21 Respiratory Pattern Normal 03/14/24 18:21 Blood Pressure 103/70 03/18/24 08:01 Blood Pressure Mean 81 03/18/24 08:01 Blood Pressure Position Supine 03/14/24 22:20 Pulse Oximetry 97 03/18/24 06:02 Respiratory End-tidal CO2 41 03/15/24 09:08 Oxygen Delivery Method Room Air 03/18/24 01:15 Oxygen Flow Rate 0 03/18/24 01:15 Fraction of Inspired Oxygen (FIO2) 31 03/15/24 10:16 Pain Level 9 03/18/24 08:41 Comment Pt is currently intubated 03/14/24 21:44 Comment post atropine 03/14/24 18:30 Intake & Output 03/17/24 03/18/24 03/18/24 23:59 11:59 23:59 Intake Total 1240 / 3133.333 800 / 800 Output Total 1850 / 2800 250 / 250 Balance -610 / 333.333 550 / 550 Intake: IV 1000 / 2893.333 250 / 250 Oral 240 / 240 550 / 550 Output: Urine 1850 / 2800 250 / 250 Other: Urine Color Yellow Yellow Urine Appearance Clear Clear Urine Odor Normal Normal Comment sims removed due to patient's request and increased agitation Data Completed and Pending Labs on day of discharge: Labs from last 24 hours 03/18/24 03/18/24 06:12 05:35 WBC 5.22 RBC 4.77 Hgb 13.6 Hct 41.2 MCV 86 MCH 28.5 MCHC 33.0 RDW 12.7 Plt Count 160 MPV 9.5 VBG pH Cancelled VBG pCO2 Cancelled VBG pO2 Cancelled VBG HCO3 Cancelled VBG Total CO2 Cancelled VBG O2 Saturation Cancelled VBG Base Excess Cancelled Sodium 142 Potassium 3.7 Chloride 107 Carbon Dioxide 28.3 Anion Gap 6.7 BUN 17 Creatinine 0.9 Est GFR (CKD-EPI 2020) 114.22 Glucose 97 Calcium 8.6 Total Bilirubin 0.67 AST 16 ALT 27 Alkaline Phosphatase 86 Total Protein 6.6 Albumin 3.0 L 03/18/24 08:38 Blood Blood Culture - Pending 03/18/24 08:38 Blood Blood Culture - Pending Preliminary micro results at discharge 03/18/24 08:38 Blood Culture - Pending Blood 03/18/24 08:38 Blood Culture - Pending Blood 03/17/24 01:30 Blood Culture - Preliminary Blood Gram Positive Cocci 03/17/24 01:46 Blood Culture - Preliminary Blood Gram Positive Cocci 03/15/24 18:43 Blood Culture - Preliminary Blood NO GROWTH 48 HOURS 03/15/24 17:25 Blood Culture - Preliminary Blood NO GROWTH 48 HOURS PFSH All Active Problems (Updated 03/18/24 @ 13:41 by Glenn Forman, DO) Tobacco abuse (Acute) DVT prophylaxis (Acute) Elevated troponin I level (Acute) Abnormal thyroid function test (Acute) Hypokalemia (Acute) Traumatic ulceration of tongue (Acute) Altered mental status (Acute) Overdose (Acute) Opioid use disorder, severe, on maintenance therapy, dependence (Chronic) Tongue abnormality (Acute) Medical History GERD (gastroesophageal reflux disease) ADHD (attention deficit hyperactivity disorder) IV drug abuse Social History Smoking/Tobacco Use Status: Current every day Tobacco Type: cigarettes Smoking risk assessment performed?: Yes Alcohol Intake: never Drug use: Daily Substance use type: marijuana, heroin and IV drugs Details: on suboxone Housing: house Do you feel safe at home: Yes Do you feel safe in your relationship?: Yes Additional Social history: mother called EMS Time Spent with Patient Time Spent with Patient: 45-69 minutes Time was spent: preparing to see the patient(eg.review tests), obtaining and/or reviewing separately otained hiistory, ordering medications,tests, procedures, referring, communicating with other health animal care provider, indepentently interpreting results, counseling the patient and care coordination
--- NOTE | 2024-03-18 15:26 | PDOC.CMPRO ---
Date of service: 03/18/24 Time of Service: 15:26 Care Management Progress Note Progress Note Text Progress Note Text: Dangelo left the hospital against medical advice today. The provider has sent a prescriptions to his pharmacy for trimethoprim/sulfamethoxazole to treat the gram positive bacteremia Dangelo was found to have. SDOH(Care Management) Screening Will the Patient Participate in the Screening?: Unable to obtain
[2024-03-20 10:24] LABS: Fentanyl Confirmation 24 ng/mL (<2); Norfentanyl Confirmation >200 ng/mL (<10)
[2024-03-22 16:52] LABS: Buprenorphine Negative ng/mL (Cutoff: 5.0); Norbuprenorphine Negative ng/mL (Cutoff: 2.5)
== END 2024-03-18 13:15 | disposition left against medical advice (07) | DRG 918 ==
LOC: ER 22:10 → ICU 22:15
PROVIDERS: Family Medicine; Internal Medicine; Admitting Provider Family Medicine; Emergency Provider Emergency Medicine; PCP Family Medicine; Visit Provider Family Medicine
DX: T40.2X1A Poisoning by other opioids, accidental (unintentional), initial encounter (principal); F11.23 Opioid dependence with withdrawal; R29.0 Tetany; T65.891A Toxic effect of other specified substances, accidental (unintentional), initial encounter; R06.81 Apnea, not elsewhere classified; T40.5X1A Poisoning by cocaine, accidental (unintentional), initial encounter; F90.8 Attention-deficit hyperactivity disorder, other type; R40.2422 Glasgow coma scale score 9-12, at arrival to emergency department; R94.6 Abnormal results of thyroid function studies; F17.210 Nicotine dependence, cigarettes, uncomplicated; F14.90 Cocaine use, unspecified, uncomplicated; K21.9 Gastro-esophageal reflux disease without esophagitis; F12.90 Cannabis use, unspecified, uncomplicated; Z78.1 Physical restraint status; G93.89 Other specified disorders of brain; R00.1 Bradycardia, unspecified; E87.6 Hypokalemia; R74.8 Abnormal levels of other serum enzymes; R50.9 Fever, unspecified; S01.512A Laceration without foreign body of oral cavity, initial encounter
CPT/HCPCS: 36410; 00123; 31500; 36415; 36592; 51702; 70496; 70498; 80048; 80053; 80076; 80307; 80338; 80348; 80354; 80375; 82550; 82805; 83690; 85027; 86850; 86900; 86901; 87040; 87077; 87637; 92610; 93005; 96365; 99285; 99291; J1650; 70450; 71045; 80320; 80329; 81003; 81015; 82140; 83735; 83880; 84439; 84443; 84484; 85025; 85610; 85730; 87186; 93010; 94002; 94003; 94640; 99223; 99233; 99239; J0461; J1100; J1171; J1885; J2060; J2405; J2704; J3370; J3480; J3490; J7613

== ENCOUNTER 2024-05-12 11:07 | Outpatient (CLI) | payer MEDICAID, SELFPAY ==
[2024-05-12 15:18] LABS: *AMPHETAMINES SCREEN URINE Negative (Negative); *BARBITURATES SCREEN URINE Negative (Negative); *BENZODIAZEPINES SCREEN URINE Negative (Negative); Cannabinoids THC Positive (Negative); Cocaine Screen,Urine Negative (Negative); METHADONE URINE SCREEN Negative (Negative); OPIATES URINE SCREEN Negative (Negative); Tricyclic Antidepressants Negative (Negative)
[2024-05-12 15:37] LABS: ALT 34 U/L (16-63); AST 20 U/L (15-37); Albumin 3.5 g/dL (3.4-5.0); Alkaline Phosphatase 110 U/L (46-116); Anion Gap 8.1 mmol/L (3-11); BUN 12 mg/dL (7-18); Bilirubin, Total 0.32 mg/dL (0.2-1.0); CO2 29.9 mmol/L (21.0-32.0); Calcium 8.9 mg/dL (8.5-10.1); Chloride 106 mmol/L (98-107); Estimated GFR 100.66 (mL/min/1.73m2); Glucose 95 mg/dL (74-106); Potassium 3.8 mmol/L (3.5-5.1); Sodium 144 mmol/L (136-145); Total Protein 7.5 g/dL (6.4-8.2)
[2024-05-15 10:46] LABS: HIV-1/2 Ag & Ab Screen Negative (Negative)
[2024-05-15 11:17] LABS: Hepatitis C Ab w Rflx HCV PCR Reactive (Negative)
[2024-05-17 14:53] LABS: HCV RNA Detection Quantitative 28 IU/mL (Undetected); HCV RNA Qualitative Detected (Undetected)
== END 2024-05-12 11:08 | disposition home or self-care (01) ==
PROVIDERS: PCP Family Medicine; Visit Provider Family Medicine
DX: F11.20 Opioid dependence, uncomplicated (principal); Z11.59 Encounter for screening for other viral diseases; F11.10 Opioid abuse, uncomplicated
CPT/HCPCS: 36415; 80053; 80307; 86803; 87389; 87522

== ENCOUNTER 2024-11-24 22:34 | Outpatient (REF) | payer MEDICAID, SELFPAY ==
[2024-11-24 23:11] LABS: ALT 31 U/L (16-63); AST 34 U/L (15-37); Albumin 4.5 g/dL (3.4-5.0); Alkaline Phosphatase 83 U/L (46-116); Bilirubin, Direct 0.1 mg/dL (0.0-0.2); Bilirubin, Total 0.5 mg/dL (0.2-1.0); Calculated LDL 107 mg/dL (<100); Cholesterol 170 mg/dL (<200); HDL Cholesterol 43 mg/dL (>or=40); Total Protein 7.6 g/dL (6.4-8.2); Triglyceride 103 mg/dL (<150)
== END 2024-11-24 22:35 | disposition home or self-care (01) ==
LOC: NCHCN 22:34
PROVIDERS: PCP Family Medicine; Visit Provider Family Medicine
DX: B19.20 Unspecified viral hepatitis C without hepatic coma (principal)
CPT/HCPCS: 80061; 80076; 87522